=== PATIENT | female | born 1995 | race African-American/Black ===

== ENCOUNTER → 2017-01-11 | Outpatient (CLI) | payer MEDICAID ==
[2017-01-11 13:30] LABS: HEMATOCRIT 35.2 % (36.0-47.0); HEMOGLOBIN 11.4 g/dL (12.0-15.5); MEAN CORPUSCULAR HEMOGLOBIN 27.6 pg (27.0-33.4); MEAN CORPUSCULAR HGB CONC 32.4 g/dL (32.0-36.0); MEAN CORPUSCULAR VOLUME 85 fl (80-97); RED BLOOD COUNT 4.13 10^6/uL (3.72-5.28); RED CELL DISTRIBUTION WIDTH 14.4 % (11.5-14.0); WHITE BLOOD COUNT 10.8 10^3/uL (4.0-10.5)
[2017-01-11 13:54] LABS: ALANINE AMINOTRANSFERASE 18 U/L (9-52); ALBUMIN 4.1 g/dL (3.5-5.0); ALKALINE PHOSPHATASE 75 U/L (38-126); ANION GAP 11 (5-19); ASPARTATE AMINO TRANSFERASE 13 U/L (14-36); BILIRUBIN,DIRECT 0.2 mg/dL (0.0-0.4); BILIRUBIN,TOTAL 0.4 mg/dL (0.2-1.3); BLOOD UREA NITROGEN 11 mg/dL (7-20); C-REACTIVE PROTEIN 5.3 mg/L (<10.0); CALCIUM 9.3 mg/dL (8.4-10.2); CARBON DIOXIDE 26 mmol/L (22-30); CHLORIDE 104 mmol/L (98-107); CREATININE RESULT 0.59 mg/dL (0.52-1.25); GLUCOSE 84 mg/dL (75-110); POTASSIUM 4.2 mmol/L (3.6-5.0); SODIUM 140.7 mmol/L (137-145); TOTAL PROTEIN 7.1 g/dL (6.3-8.2)
== END ==
LOC: OD 12:23
PROVIDERS: ATTEND Physician Assistant Surgical
DX: R11.2 Nausea with vomiting, unspecified (principal); K62.89 Other specified diseases of anus and rectum; R10.12 Left upper quadrant pain
CPT/HCPCS: 36415; 80053; 85027; 86140

== ENCOUNTER 2017-12-12 11:23 | Emergency (ER) | payer MEDICAID, OTHER ==
[2017-12-12] MEDS ORDERED: ACETAMINOPHEN 325 MG TABLET PO ONE (11:53)
[2017-12-12] MEDS ORDERED: IPRATROPIUM/ALBUTEROL 0.5-2.5 MG/3 ML AMPUL NEB ONE (11:53)
[2017-12-12] MEDS ORDERED: ALPRAZOLAM 0.5 MG TABLET PO ONE (11:54)
--- NOTE | 2017-12-12 11:55 | ER Document Report ---
ED Medical Screen (RME) - General Chief Complaint: Chest Wall Pain Stated Complaint: CHEST PAIN Time Seen by Provider: 12/12/17 11:52 Notes: 22 years old female with a history of present today with sudden onset of general weakness to the point that she was unable to ambulate, shortness of breath wheezing coughing and also vomited couple of times. This happened at work. Just prior to arrival. I have greeted and performed a rapid initial assessment of this patient. A comprehensive ED assessment and evaluation of the patient, analysis of test results and completion of the medical decision making process will be conducted by additional ED providers. PHYSICAL EXAMINATION: GENERAL: Well-appearing, well-nourished and in no acute distress. Seems to be in acute anxiety. She was staring direct and speaking in a very low voice. HEAD: Atraumatic, normocephalic. EYES: Pupils equal round extraocular movements intact, conjunctiva are normal. ENT: Nares patent NECK: Normal range of motion LUNGS: No respiratory distress no rales or wheezing Musculoskeletal: Normal range of motion NEUROLOGICAL: Normal speech, normal gait. PSYCH: Normal mood, normal affect. SKIN: Warm, Dry, normal turgor, no rashes or lesions noted. TRAVEL OUTSIDE OF THE [place] IN LAST 30 DAYS: No - Related Data Allergies/Adverse Reactions: Iodinated Contrast- Oral and IV Dye Allergy (Intermediate, Verified 12/12/17 11: 38) Hives Shellfish * [Shellfish] Allergy (Intermediate, Verified 12/12/17 11:38) Hives Sulfa (Sulfonamide Antibiotics) Allergy (Intermediate, Verified 12/12/17 11:38) UNKNOWN indomethacin Allergy (Unknown, Verified 12/12/17 11:38) Unknown reaction Bees Allergy (Intermediate, Uncoded 12/12/17 11:38) Hives Past Medical History - Social History Chew tobacco use (# tins/day): No Drug Abuse: None - Past Medical History Cardiac Medical History: Denies: Hx Coronary Artery Disease, Hx Heart Attack, Hx Hypertension Pulmonary Medical History: Reports: Hx Asthma Denies: Hx Bronchitis, Hx COPD, Hx Pneumonia Neurological Medical History: Denies: Hx Cerebrovascular Accident, Hx Seizures Renal/ Medical History: Denies: Hx Peritoneal Dialysis GI Medical History: Reports: Hx Colonoscopy, Hx Endoscopy Musculoskeltal Medical History: Denies Hx Arthritis Past Surgical History: Reports: Hx Orthopedic Surgery - Immunizations Hx Diphtheria, Pertussis, Tetanus Vaccination: Yes Physical Exam - Vital signs Vitals: Temp Pulse Resp BP Pulse Ox 99.0 F 108 H 24 H 135/92 H 100 12/12/17 11:26 12/12/17 11:26 12/12/17 11:26 12/12/17 11:26 12/12/17 11:26 Course - Vital Signs Vital signs: Temp Pulse Resp BP Pulse Ox 99.0 F 108 H 24 H 135/92 H 100 12/12/17 11:26 12/12/17 11:26 12/12/17 11:26 12/12/17 11:26 12/12/17 11:26
[2017-12-12 12:24] LABS: ABSOLUTE BASOPHILS # (AUTO) 0.1 10^3/uL (0.0-0.2); ABSOLUTE EOSINOPHILS # (AUTO) 0.4 10^3/uL (0.0-0.6); ABSOLUTE LYMPHOCYTES (AUTO) 2.6 10^3/uL (0.5-4.7); ABSOLUTE MONOCYTES (AUTO) 0.7 10^3/uL (0.1-1.4); ABSOLUTE NEUT (AUTO) 7.1 10^3/uL (1.7-8.2); BASOPHILS % (AUTO) 0.6 % (0-2); EOSINOPHILS % (AUTO) 3.3 % (0-6); HEMATOCRIT 37.3 % (36.0-47.0); HEMOGLOBIN 12.1 g/dL (12.0-15.5); LYMPHOCYTES % (AUTO) 24.3 % (13-45); MEAN CORPUSCULAR HGB CONC 32.6 g/dL (32.0-36.0); MEAN CORPUSCULAR VOLUME 83 fl (80-97); MONOCYTES % (AUTO) 6.3 % (3-13); PLATELET COUNT 216 10^3/uL (150-450); RED CELL DISTRIBUTION WIDTH 14.5 % (11.5-14.0); SEGMENTED NEUTROPHILS % (AUTO) 65.5 % (42-78); TOTAL CELLS COUNTED % (AUTO) 100 %; WHITE BLOOD COUNT 10.9 10^3/uL (4.0-10.5)
--- NOTE | 2017-12-12 12:38 | ER Document Report ---
ED General - General Chief Complaint: Chest Wall Pain Stated Complaint: CHEST PAIN Time Seen by Provider: 12/12/17 11:52 Mode of Arrival: Ambulatory Information source: Patient, Parent, Relative TRAVEL OUTSIDE OF THE [place] IN LAST 30 DAYS: No - HPI Notes: 22-year-old female 2 para 0 who presents to the ER from urgent care for complaints of shortness of breath, chest pain, headache, sore throat, nausea and vomiting that started yesterday. Patient is tachycardic on arrival, with tachypnea. Patient is on oral control. Denies any recent immobilization , surgery, flights or car rides. Patient states she vomited 3 times today. States chest pain is worse with coughing, denies any radiation of chest pain, states pain is 4 out of 10, throbbing achy. Denies chest pain worse with activity. Has been coughing for the last few days. States her allergies has been bothering her. Last menstrual period was 3 weeks ago. Denies . has not tried any [id number] medications, did do a albuterol treatment this morning and she thought she was having an asthmatic flare. Denies fevers, chills, palpitations, nausea, vomiting, diarrhea, abdominal pain, hematuria, blurred vision, double vision, loss of vision, speech changes, LH, dizziness, syncope, headaches, wheezing, ST, URI, neck pain, weakness, bowel or bladder dysfunction, saddle anesthesia, numbness or tingling in bilateral upper or lower extremities equally, muscle paralysis, weakness in bilateral upper or lower extremities equally or rash. Denies IV drug use. - Related Data Allergies/Adverse Reactions: Iodinated Contrast- Oral and IV Dye Allergy (Intermediate, Verified 12/12/17 11: 38) Hives Shellfish * [Shellfish] Allergy (Intermediate, Verified 12/12/17 11:38) Hives Sulfa (Sulfonamide Antibiotics) Allergy (Intermediate, Verified 12/12/17 11:38) UNKNOWN indomethacin Allergy (Unknown, Verified 12/12/17 11:38) Unknown reaction Bees Allergy (Intermediate, Uncoded 12/12/17 11:38) Hives Past Medical History - General Information source: Patient - Social History Smoking Status: Never Smoker Chew tobacco use (# tins/day): No Drug Abuse: None Family History: Reviewed & Not Pertinent, Other Patient has suicidal ideation: No Patient has homicidal ideation: No - Past Medical History Cardiac Medical History: Denies: Hx Coronary Artery Disease, Hx Heart Attack, Hx Hypertension Pulmonary Medical History: Reports: Hx Asthma Denies: Hx Bronchitis, Hx COPD, Hx Pneumonia Neurological Medical History: Denies: Hx Cerebrovascular Accident, Hx Seizures Renal/ Medical History: Denies: Hx Peritoneal Dialysis GI Medical History: Reports: Hx Colonoscopy, Hx Endoscopy Musculoskeltal Medical History: Denies Hx Arthritis Past Surgical History: Reports: Hx Orthopedic Surgery - Immunizations Hx Diphtheria, Pertussis, Tetanus Vaccination: Yes Review of Systems - Review of Systems Constitutional: No symptoms reported EENT: See HPI Cardiovascular: See HPI Respiratory: See HPI Gastrointestinal: No symptoms reported Genitourinary: No symptoms reported Female Genitourinary: No symptoms reported Musculoskeletal: No symptoms reported Skin: No symptoms reported Hematologic/Lymphatic: No symptoms reported Neurological/Psychological: No symptoms reported Physical Exam - Vital signs Vitals: Temp Pulse Resp BP Pulse Ox 99.0 F 108 H 24 H 135/92 H 100 12/12/17 11:26 12/12/17 11:26 12/12/17 11:26 12/12/17 11:26 12/12/17 11:26 - Notes Notes: PHYSICAL EXAMINATION: GENERAL: Well-appearing, well-nourished and in no acute distress. HEAD: Atraumatic, normocephalic. EYES: Pupils equal round and reactive to light, extraocular movements intact, conjunctiva are normal. ENT: tympanic membranes are normal appearing with pearly color, normal- appearing landmarks and normal light reflex. Hearing is grossly intact. Has normal facial sensation to light touch in 3 branches of the trigeminal nerve. Normal facial movement. No clicking or popping when jaw opens or closes. The nasal mucosa is moist. The septum is midline. There is no evidence of septal hematoma. The turbinates are without abnormality.No obvious abnormalities to the lips. The teeth are unremarkable. No swelling. noted erythema and exudate on bilateral tonsils. no angioedema no drooling no trismus bilateral arches equal. Uvula midline. The salivary glands appear unremarkable. The tongue is midline. The posterior pharynx is without erythema or exudate. NECK: Normal range of motion, supple without lymphadenopathy LUNGS: Breath sounds clear to auscultation bilaterally and equal. No wheezes rales or rhonchi. Will to reproduce chest pain on palpation, patient states this chest pain prior to the emergency room. HEART: Sinus tachycardia. regular rhythm without murmurs ABDOMEN: Soft, nontender, nondistended abdomen. No guarding, no rebound. No masses appreciated. Female : deferred Musculoskeletal: Normal range of motion, no pitting or edema. No cyanosis. NEUROLOGICAL: Cranial nerves grossly intact. Normal speech, normal gait. Normal sensory, motor exams PSYCH: Normal mood, normal affect. SKIN: Warm, Dry, normal turgor, no rashes or lesions noted. Course - Re-evaluation Re-evalutation: Febrile, no distress tachycardic female. She premedicated with Benadryl and prednisolone which inadvertently can help treat her asthma. CTA negative for acute findings. Noted erythema and exudate on tonsils on clinical examination, patient's symptoms seem correlation with strep pharyngitis, such as her headache , sore throat, nausea and vomiting. Urine was negative. Patient also has seasonal allergies, I suspect that this did activate her asthma, which initially brought her in. CBC, CMP, urinalysis, cxr and urine tox screen unremarkable. 1 bag of normal saline given IV. In reevaluation, patient's heart rate reduced to 87 bpm. States her symptoms feel much better. I will treat this patient for strep pharyngitis with a course of amoxicillin and also give her Zofran in case she does not have any nausea. Denies to take over-the- counter ibuprofen and Tylenol as for costochondritis. Advised to splint while coughing and taking deep breaths. Advised to take at least 10 deep breaths per hour, cough at least trace to prevent any occurrence of atelectasis or pneumonia. I have reevaluated this patient multiple times and no significant life threatening changes, no signs of toxicity, sepsis or peritonitis are noted. The patient and I have discussed the diagnosis and risks, and we agree with discharging home and close follow-up. We also discussed returning to the Emergency Department immediately if new or worsening symptoms occur with the understanding that symptoms and presentations can change. At this time will discharge with return precautions and follow-up recommendations. Verbal discharge instructions given a the bedside and opportunity for questions given. We have discussed the symptoms which are most concerning (e.g., fever, shortness of breath, heart pain, worsening symptoms) that necessitate immediate return. Medication warnings reviewed. Patient is in agreement with this plan and has verbalized understanding of return precautions and the need for primary care follow-up in the next 24-72 hours. Patient verbalized understanding of plan of care and agree with plan of care. - Vital Signs Vital signs: Temp Pulse Resp BP Pulse Ox 98.0 F 108 H 21 H 116/65 99 12/12/17 16:15 12/12/17 11:26 12/12/17 16:06 12/12/17 16:06 12/12/17 16:06 - Laboratory Result Diagrams: 12/12/17 11:55 12/12/17 11:55 Laboratory results interpreted by me: 12/12/17 11:55 WBC 10.9 H RDW 14.5 H - EKG Interpretation by Me EKG shows normal: Sinus rhythm Rate: Normal Rhythm: NSR - 88 When compared to previous EKG there are: No significant change Discharge - Discharge Clinical Impression: Tonsillar exudate, Dehydration, Costochondritis, acute Condition: Stable Disposition: HOME, SELF-CARE Instructions: Anti-Inflammatory Medication ([facility]), Chest Wall Pain ([facility]), Dehydration ([facility]), Sore Throat ([facility]), Strep Throat ([facility]) Additional Instructions: Return immediately for any new or worsening symptoms.Please be sure to drink plenty of fluids while out in the heat. You can purchase packets of electrolyte replacement solutions such as Pedialyte or propel that you can add to plain water. This will help to make sure that you are getting adequate electrolytes in addition to fluids while working outside. Please return to the emergency department if you pass out, developed diffuse muscle cramping, have persistent vomiting, or have any other symptoms that are worrisome to you. Follow up with primary care provider, call tomorrow to make followup appointment. Prescriptions: Amoxicillin Trihydrate [Amoxil 500 mg Capsule] 500 mg PO TID #30 capsule Ondansetron [Zofran Odt 4 mg Tablet] 1 - 2 tab PO Q4H PRN #15 tab.rapdis PRN Reason: For Nausea/Vomiting Forms: Return to Work Referrals: ADELA MINA, [Primary Care Provider] - Follow up as needed
[2017-12-12 12:49] LABS: ALANINE AMINOTRANSFERASE 16 U/L (9-52); ALBUMIN 4.3 g/dL (3.5-5.0); ALKALINE PHOSPHATASE 81 U/L (38-126); ANION GAP 13 (5-19); ASPARTATE AMINO TRANSFERASE 14 U/L (14-36); BILIRUBIN,DIRECT 0.3 mg/dL (0.0-0.4); BILIRUBIN,TOTAL 0.3 mg/dL (0.2-1.3); BLOOD UREA NITROGEN 11 mg/dL (7-20); CALCIUM 9.3 mg/dL (8.4-10.2); CARBON DIOXIDE 25 mmol/L (22-30); CHLORIDE 105 mmol/L (98-107); GLUCOSE 87 mg/dL (75-110); POTASSIUM 3.6 mmol/L (3.6-5.0); SODIUM 143.3 mmol/L (137-145); TOTAL PROTEIN 7.5 g/dL (6.3-8.2)
[2017-12-12 12:52] LABS: APPEARANCE,URINE SLIGHTLY-CLOUDY; BILIRUBIN,URINE NEGATIVE (NEGATIVE); COLOR,URINE YELLOW; GLUCOSE, URINE NEGATIVE (NEGATIVE); KETONES,URINE NEGATIVE (NEGATIVE); LEUKOCYTE ESTERASE,URINE NEGATIVE (NEGATIVE); NITRITE,URINE NEGATIVE (NEGATIVE); PROTEIN,URINE NEGATIVE (NEGATIVE); URINE SPECIFIC GRAVITY 1.019; UROBILINOGEN,URINE NEGATIVE mg/dL (<2.0)
--- NOTE | 2017-12-12 13:01 | RADIOLOGY REPORT (SQ) ---
EXAM DESCRIPTION: CHEST 2 VIEWS COMPLETED DATE/TIME: 12/12/2017 12:52 pm REASON FOR STUDY: Chest pain COMPARISON: 07/08/2016. EXAM PARAMETERS: NUMBER OF VIEWS: two views TECHNIQUE: Digital Frontal and Lateral radiographic views of the chest acquired. RADIATION DOSE: NA LIMITATIONS: none FINDINGS: LUNGS AND PLEURA: No opacities, masses or pneumothorax. No pleural effusion. MEDIASTINUM AND HILAR STRUCTURES: No masses or contour abnormalities. HEART AND VASCULAR STRUCTURES: Heart normal size. No evidence for failure. BONES: No acute findings. HARDWARE: None in the chest. OTHER: No other significant finding. IMPRESSION: NO ACUTE RADIOGRAPHIC FINDING IN THE CHEST. TECHNICAL DOCUMENTATION: JOB ID: [id number] [employer]- All Rights Reserved Reading location - IP/workstation name: [email or web address]
[2017-12-12 13:05] LABS: URINE AMPHETAMINES SCREEN NEGATIVE; URINE BARBITURATES SCREEN NEGATIVE; URINE BENZODIAZEPINES SCREEN NEGATIVE; URINE COCAINE SCREEN NEGATIVE; URINE MARIJUANA (THC) SCREEN NEGATIVE; URINE METHADONE SCREEN NEGATIVE; URINE PHENCYCLIDINE SCREEN NEGATIVE
[2017-12-12] MEDS ORDERED: NORMAL SALINE 1000 ML 1,000 ML IV PRN (13:44)
[2017-12-12] MEDS ORDERED: DIPHENHYDRAMINE HCL 50 MG/ML VIAL IV ONE (13:44)
[2017-12-12] MEDS ORDERED: METHYLPREDNISOLONE INJ 125 MG/2 ML SDV IV ONE (13:44)
--- NOTE | 2017-12-12 15:16 | RADIOLOGY REPORT (SQ) ---
EXAM DESCRIPTION: CTA CHEST COMPLETED DATE/TIME: 12/12/2017 3:01 pm REASON FOR STUDY: tachy, on BC, intermittent SOB COMPARISON: None. TECHNIQUE: CT scan of the chest performed using helical scanning technique with dynamic intravenous contrast injection. Images reviewed with lung, soft tissue and bone windows. Reconstructed coronal and sagittal MPR images reviewed. Additional 3 dimensional post-processing performed to develop Maximal Intensity Projection images (CT P). All images stored on PACS. All CT scanners at this facility use dose modulation, iterative reconstruction, and/or weight based d osing when appropriate to reduce radiation dose to as low as reasonably achievable (ALARA). [facility]: Dose Right [facility]: CareDose [facility]: Dose Right [facility]: Teradose 4D [facility]: [employer] CONTRAST TYPE AND DOSE: contrast/concentration: Isovue 370.00 mg/ml; Total Contrast Delivered: 155.0 ml; Total Saline Delivered: 172.0 ml Contrast bolus optimized for the pulmonary arteries. Not diagnostic for the aorta. RENAL FUNCTION: BUN 11 creatinine 0.57 RADIATION DOSE: CT Rad equipment meets quality standard of care and radiation dose reduction techniq ues were employed. CTDIvol: 13.2 - 16.5 mGy. DLP: 1110 mGy-cm. . LIMITATIONS: None. FINDINGS: LUNGS AND PLEURA: No masses, infiltrates, pneumothorax. No pleural effusions, calcificati ons. AORTA AND GREAT VESSELS: No aneurysm. Contrast bolus not optimized for the aorta. HEART: No pericardial effusion. No significant coronary artery calcifications. PULMONARY ARTERIES: No emboli visualized in the main pulmonary arteries or the segmental branches. HILAR AND MEDIASTINAL STRUCTURES: No identified masses or abnormal nodes. HARDWARE: None in the chest. UPPER ABDOMEN: No significant findings. Limited exam. THYROID AND OTHER SOFT TISSUES: No masses. No adenopathy. BONES: No acute or significant finding. 3D MIPS: Confirm above findings. OTHER: No other significant finding. IMPRESSION: NORMAL CTA OF THE CHEST. NO PULMONARY EMBOLI. COMMENT: Quality ID # [id number]: Final reports with documentation of one or more dose reduction techniques (e.g., Automated exposure control, adjustment of the mA and/or kV according to patient size, use of iterative reconstruction technique) TECHNICAL DOCUMENTATION: JOB ID: [id number] [employer]- All Rights Reserved Reading location - IP/workstation name: [email or web address]
[2017-12-12] MEDS ORDERED: AMOXICILLIN TRIHYDRATE 500 MG CAPSULE PO ONE (16:06)
[2017-12-12 16:17] VITALS: BP 116/65
--- NOTE | 2017-12-12 23:33 | EKG REPORT ---
SEVERITY:- NORMAL ECG - SINUS RHYTHM : Confirmed by: Huang Franco 12-Dec-2017 23:32:36
== END 2017-12-12 16:44 | disposition home or self-care (01) ==
LOC: ER 11:23
DX: M94.0 Chondrocostal junction syndrome [Tietze] (principal); J45.909 Unspecified asthma, uncomplicated; R09.89 Other specified symptoms and signs involving the circulatory and respiratory systems; R51 Headache; E86.0 Dehydration; R06.02 Shortness of breath; J02.9 Acute pharyngitis, unspecified; R07.89 Other chest pain; R11.2 Nausea with vomiting, unspecified; R05 Cough; Z79.3 Long term (current) use of hormonal contraceptives; Z91.041 Radiographic dye allergy status; Z91.030 Bee allergy status; Z91.013 Allergy to seafood; Z88.2 Allergy status to sulfonamides; Z88.8 Allergy status to other drugs, medicaments and biological substances
CPT/HCPCS: 93005; 94640; 99285; 96361; 96374; 96375; 36415; 87070; 87880; 85025; 81025; 87077; 80053; 81001; 80307; 71046; 71275; 93010; J1200; J2930; J7030; J7620

== ENCOUNTER 2018-04-19 17:43 | Emergency (ER) | payer OTHER ==
--- NOTE | 2018-04-19 18:18 | ER Document Report ---
ED Medical Screen (RME) - General Chief Complaint: Abdominal Pain Stated Complaint: ABDOMINAL PAIN Time Seen by Provider: 04/19/18 18:11 Notes: 22-year-old female patient with right lower quadrant abdominal pain for the past week. She has had some chills with nausea and vomiting but without fever. She states the pain actually started last Monday, and it does radiate into her back quite a bit. LMP was 03/25/2018. She states her urine has not looked cloudy or had a bad odor. She does have a history of ovarian cysts but states this does not feel like her ovarian cyst in the past. I have greeted and performed a rapid initial assessment of this patient. A comprehensive ED assessment and evaluation of the patient, analysis of test results and completion of the medical decision making process will be conducted by additional ED providers. TRAVEL OUTSIDE OF THE [place] IN LAST 30 DAYS: No - Related Data Allergies/Adverse Reactions: Iodinated Contrast- Oral and IV Dye Allergy (Intermediate, Verified 04/19/18 17: 47) Hives Shellfish * [Shellfish] Allergy (Intermediate, Verified 04/19/18 17:47) Hives Sulfa (Sulfonamide Antibiotics) Allergy (Intermediate, Verified 04/19/18 17:47) UNKNOWN indomethacin Allergy (Unknown, Verified 04/19/18 17:47) Unknown reaction Bees Allergy (Intermediate, Uncoded 04/19/18 17:47) Hives Past Medical History - Social History Chew tobacco use (# tins/day): No Frequency of alcohol use: None Drug Abuse: None - Past Medical History Cardiac Medical History: Denies: Hx Coronary Artery Disease, Hx Heart Attack, Hx Hypertension Pulmonary Medical History: Reports: Hx Asthma Denies: Hx Bronchitis, Hx COPD, Hx Pneumonia Neurological Medical History: 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" Renal/ Medical History: Denies: Hx Peritoneal Dialysis GI Medical History: Reports: Hx Colonoscopy, Hx Endoscopy Musculoskeltal Medical History: Denies Hx Arthritis Past Surgical History: Reports: Hx Orthopedic Surgery - Immunizations Hx Diphtheria, Pertussis, Tetanus Vaccination: Yes Physical Exam - Vital signs Vitals: Temp Pulse Resp BP Pulse Ox 98.6 F 83 14 121/69 100 04/19/18 17:57 04/19/18 17:57 04/19/18 17:57 04/19/18 17:57 04/19/18 17:57 Course - Vital Signs Vital signs: Temp Pulse Resp BP Pulse Ox 98.6 F 83 14 121/69 100 04/19/18 17:57 04/19/18 17:57 04/19/18 17:57 04/19/18 17:57 04/19/18 17:57 Doctor's Discharge - Discharge Referrals: ADELA MINA, [Primary Care Provider] - Follow up as needed
[2018-04-19 18:56] LABS: APPEARANCE,URINE SLIGHTLY-CLOUDY; BILIRUBIN,URINE NEGATIVE (NEGATIVE); COLOR,URINE YELLOW; GLUCOSE, URINE NEGATIVE (NEGATIVE); KETONES,URINE NEGATIVE (NEGATIVE); LEUKOCYTE ESTERASE,URINE NEGATIVE (NEGATIVE); NITRITE,URINE NEGATIVE (NEGATIVE); PROTEIN,URINE NEGATIVE (NEGATIVE); URINE SPECIFIC GRAVITY 1.019; UROBILINOGEN,URINE NEGATIVE mg/dL (<2.0)
[2018-04-19 19:02] LABS: ABSOLUTE BASOPHILS # (AUTO) 0.1 10^3/uL (0.0-0.2); ABSOLUTE EOSINOPHILS # (AUTO) 0.3 10^3/uL (0.0-0.6); ABSOLUTE LYMPHOCYTES (AUTO) 2.9 10^3/uL (0.5-4.7); ABSOLUTE MONOCYTES (AUTO) 0.7 10^3/uL (0.1-1.4); ABSOLUTE NEUT (AUTO) 5.7 10^3/uL (1.7-8.2); BASOPHILS % (AUTO) 0.6 % (0-2); EOSINOPHILS % (AUTO) 2.7 % (0-6); HEMATOCRIT 35.6 % (36.0-47.0); HEMOGLOBIN 11.8 g/dL (12.0-15.5); LYMPHOCYTES % (AUTO) 30.1 % (13-45); MEAN CORPUSCULAR VOLUME 85 fl (80-97); PLATELET COUNT 207 10^3/uL (150-450); RED BLOOD COUNT 4.21 10^6/uL (3.72-5.28); RED CELL DISTRIBUTION WIDTH 14.5 % (11.5-14.0); SEGMENTED NEUTROPHILS % (AUTO) 59.6 % (42-78); TOTAL CELLS COUNTED % (AUTO) 100 %; WHITE BLOOD COUNT 9.6 10^3/uL (4.0-10.5)
[2018-04-19 19:18] LABS: ALANINE AMINOTRANSFERASE 16 U/L (9-52); ALKALINE PHOSPHATASE 52 U/L (38-126); ANION GAP 10 (5-19); ASPARTATE AMINO TRANSFERASE 14 U/L (14-36); BILIRUBIN,DIRECT 0.2 mg/dL (0.0-0.4); BILIRUBIN,TOTAL 0.3 mg/dL (0.2-1.3); BLOOD UREA NITROGEN 15 mg/dL (7-20); CALCIUM 9.8 mg/dL (8.4-10.2); CARBON DIOXIDE 25 mmol/L (22-30); CHLORIDE 106 mmol/L (98-107); GLUCOSE 91 mg/dL (75-110); POTASSIUM 4.4 mmol/L (3.6-5.0); SODIUM 141.2 mmol/L (137-145)
[2018-04-19] MEDS ORDERED: HYOSCYAMINE SULFATE 0.125 MG TABLET PO ONE (20:41)
[2018-04-19] MEDS ORDERED: LIDOCAINE 5% (700 MG) TRANSDERMAL ADH..PATCH TP ONE (20:41)
[2018-04-19] MEDS ORDERED: KETOROLAC TROMETHAMINE 60 MG/2 ML SDV IM ONE (20:41)
--- NOTE | 2018-04-19 20:53 | ER Document Report ---
ED General - General Chief Complaint: Abdominal Pain Stated Complaint: ABDOMINAL PAIN Time Seen by Provider: 04/19/18 18:11 Notes: Patient is a 22-year old female with a past medical history of endometriosis, cyclical abdominal pain who presents with 1 week of right lower abdominal pain. She states the pain started gradually, has been getting progressively worse since that time. She describes it as a stabbing, aching pain to the right adnexal region. Moving worsens the pain. She has not trying to improve the pain. She is unsure of whether or not she has had similar symptoms in the past. She has not seen her general doctor or TAIL WORKER regarding today's concerns. She denies any dysuria, vaginal bleeding, vaginal discharge, vomiting , diarrhea. No abdominal surgical history. No fever or constitutional symptoms. TRAVEL OUTSIDE OF THE [place] IN LAST 30 DAYS: No - Related Data Allergies/Adverse Reactions: Iodinated Contrast- Oral and IV Dye Allergy (Intermediate, Verified 04/19/18 17: 47) Hives Shellfish * [Shellfish] Allergy (Intermediate, Verified 04/19/18 17:47) Hives Sulfa (Sulfonamide Antibiotics) Allergy (Intermediate, Verified 04/19/18 17:47) UNKNOWN indomethacin Allergy (Unknown, Verified 04/19/18 17:47) Unknown reaction Bees Allergy (Intermediate, Uncoded 04/19/18 17:47) Hives Past Medical History - General Information source: Patient - Social History Smoking Status: Never Smoker Chew tobacco use (# tins/day): No Frequency of alcohol use: None Drug Abuse: None Lives with: Spouse/Significant other Family History: Reviewed & Not Pertinent, Other Patient has suicidal ideation: No Patient has homicidal ideation: No - Past Medical History Cardiac Medical History: Denies: Hx Coronary Artery Disease, Hx Heart Attack, Hx Hypertension Pulmonary Medical History: Reports: Hx Asthma Denies: Hx Bronchitis, Hx COPD, Hx Pneumonia Neurological Medical History: 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" Renal/ Medical History: Denies: Hx Peritoneal Dialysis GI Medical History: Reports: Hx Colonoscopy, Hx Endoscopy Musculoskeletal Medical History: Denies Hx Arthritis Past Surgical History: Reports: Hx Orthopedic Surgery - Immunizations Hx Diphtheria, Pertussis, Tetanus Vaccination: Yes Review of Systems - Review of Systems Notes: Constitutional: Negative for fever. HENT: Negative for sore throat. Eyes: Negative for visual changes. Cardiovascular: Negative for chest pain. Respiratory: Negative for shortness of breath. Gastrointestinal: Positive for abdominal pain Genitourinary: Negative for dysuria. Musculoskeletal: Negative for back pain. Skin: Negative for rash. Neurological: Negative for headaches, weakness or numbness. 10 point ROS negative except as marked above and in HPI. Physical Exam - Vital signs Vitals: Temp Pulse Resp BP Pulse Ox 98.6 F 83 14 121/69 100 04/19/18 17:57 04/19/18 17:57 04/19/18 17:57 04/19/18 17:57 04/19/18 17:57 Interpretation: Normal Notes: PHYSICAL EXAMINATION: GENERAL: Well-appearing, well-nourished and in no acute distress. HEAD: Atraumatic, normocephalic. EYES: Pupils equal round and reactive to light, extraocular movements intact, sclera anicteric, conjunctiva are normal. ENT: nares patent, oropharynx clear without exudates. Moist mucous membranes. NECK: Normal range of motion, supple without lymphadenopathy LUNGS: Breath sounds clear to auscultation bilaterally and equal. No wheezes rales or rhonchi. HEART: Regular rate and rhythm without murmurs ABDOMEN: Soft, mild right adnexal tenderness but no other areas of localized abdominal tenderness, normoactive bowel sounds. No guarding, no rebound. No masses appreciated. EXTREMITIES: Normal range of motion, no pitting or edema. No cyanosis. NEUROLOGICAL: No focal neurological deficits. Moves all extremities spontaneously and on command. PSYCH: Normal mood, normal affect. SKIN: Warm, Dry, normal turgor, no rashes or lesions noted. Course - Re-evaluation Re-evalutation: 04/19/18 20:51 Patient presents with 1 week of right lower abdominal pain, most focal over the right adnexa on exam. History and duration of symptoms are inconsistent with a TOA or an ovarian torsion, most probably a ovarian cyst. No vaginal discharge, vaginal bleeding, constitutional symptoms to suggest an infectious etiology such as PID. Patient is a long-standing history of chronic intermittent abdominal pain, has had extensive evaluations for this including multiple CT scans, HIDA scan, abdominal ultrasound, endoscopy and colonoscopy all without distinct etiology. I have examined the patient that she likely has cyclical abdominal pain but will proceed with a transvaginal ultrasound to evaluate for the possibility of an ovarian cyst which could be an alternative etiology of her symptoms today. I do not suspect an acute appendicitis or any alternative intra-abdominal pathology at this point based on her vitals, labs, exam and history. 04/20/18 00:49 Right ovarian cyst confirmed on ultrasound. Repeat abdominal exam benign. I have discussed results with the patient as well as need for outpatient OB follow -up. At this time will discharge with return precautions and follow-up recommendations. Verbal discharge instructions given a the bedside and opportunity for questions given. Medication warnings reviewed. Patient is in agreement with this plan and has verbalized understanding of return precautions and the need for primary care follow-up in the next 24-72 hours. - Vital Signs Vital signs: Temp Pulse Resp BP Pulse Ox 98.6 F 83 14 121/69 100 04/19/18 17:57 04/19/18 17:57 04/19/18 17:57 04/19/18 17:57 04/19/18 17:57 - Laboratory Result Diagrams: 04/19/18 18:45 04/19/18 18:45 Laboratory results interpreted by me: 04/19/18 18:45 Hgb 11.8 L Hct 35.6 L RDW 14.5 H Discharge - Discharge Clinical Impression: Right ovarian cyst, Cyclical abdominal pain Condition: Good Disposition: HOME, SELF-CARE Additional Instructions: Your seen today for right lower abdominal pain. Your ultrasound does show a 6 cm cyst in your right ovary. For your pain: Take ibuprofen 600 mg and acetaminophen 1000 mg every 6 hours together as needed for pain. Please follow- up with your TAIL WORKER within the next 24-40 hours regarding today's visit to the emergency department. Return if you develop fever, worsening pain, persistent vomiting, or any other symptoms that are worrisome to you. Referrals: ADELA MINA, [NO LOCAL MD] - Follow up as needed
--- NOTE | 2018-04-20 00:28 | RADIOLOGY REPORT (SQ) ---
EXAM DESCRIPTION: US TRANSVAGINAL COMPLETED DATE/TME: 04/19/2018 20:40 CLINICAL HISTORY: right adnexal pain COMPARISON: None. FINDINGS: Transvaginal images of the pelvis were submitted. The uterus is of homogeneous echotexture without focal mass. The uterus measures 8 x 5 x 4.1 cm. The endometrial complex measures 6 mm which is within normal limits. Right ovary measured 5.9 x 5.7 x 4.2 cm and contains a 5.5 x 4.7 x 3.5 cm cyst with septation. There is no sonographic evidence of ovarian torsion. The left ovary was not visualized. IMPRESSION: Septated 5.5 cm cyst within the right ovary. Follow-up ultrasound in 6-12 weeks recommended for further evaluation unless clinically indicated sooner.
[2018-04-20 01:11] VITALS: BP 126/79
== END 2018-04-20 01:13 | disposition home or self-care (01) ==
LOC: ER 17:43
DX: N83.201 Unspecified ovarian cyst, right side (principal); R10.9 Unspecified abdominal pain; Z88.2 Allergy status to sulfonamides; Z91.013 Allergy to seafood
CPT/HCPCS: 99284; 96372; 36415; 85025; 81025; 80053; 81001; 76830; 93976; J1885; J3490

== ENCOUNTER 2018-12-28 13:14 | Emergency (ER) | payer OTHER ==
[2018-12-28] MEDS ORDERED: ALBUTEROL SULFATE 0.083% NEB 2.5 MG/3 ML AMPUL NEB ONE ×2 (14:13→17:37)
[2018-12-28] MEDS ORDERED: HYDROCODONE BIT/HOMATROPINE SYRUP 5 ML UDCUP PO ONE (14:15)
[2018-12-28] MEDS ORDERED: GUAIFENESIN SYRP 200 MG/10 ML UDC PO ONE (14:20)
--- NOTE | 2018-12-28 14:20 | ER Document Report ---
ED Medical Screen (RME) - General Chief Complaint: Shortness Of Breath Stated Complaint: DIFFICULTY BREATHING Time Seen by Provider: 12/28/18 14:07 Primary Care Provider: DRAKE MUHAMMAD MD [Primary Care Provider] - Follow up as needed Mode of Arrival: Ambulatory Information source: Patient Notes: Pt is an asthmatic and has had productive cough for 1 week. Patient states it is productive of thick green sputum and has been causing her to gag. She was short of breath today and called 911, they gave her breathing treatments which has helped. She admits to feeling clammy and chills but does not know if she had a fever. TRAVEL OUTSIDE OF THE [place] IN LAST 30 DAYS: No - Related Data Allergies/Adverse Reactions: Iodinated Contrast- Oral and IV Dye Allergy (Intermediate, Verified 04/19/18 17:47) Hives Shellfish * [Shellfish] Allergy (Intermediate, Verified 04/19/18 17:47) Hives Sulfa (Sulfonamide Antibiotics) Allergy (Intermediate, Verified 04/19/18 17:47) UNKNOWN indomethacin Allergy (Unknown, Verified 04/19/18 17:47) Unknown reaction Bees Allergy (Intermediate, Uncoded 04/19/18 17:47) Hives Past Medical History - General Information source: Patient - Social History Chew tobacco use (# tins/day): No Frequency of alcohol use: None Drug Abuse: None - Past Medical History Cardiac Medical History: Denies: Hx Coronary Artery Disease, Hx Heart Attack, Hx Hypertension Pulmonary Medical History: Reports: Hx Asthma Denies: Hx Bronchitis, Hx COPD, Hx Pneumonia Neurological Medical History: 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" Renal/ Medical History: Denies: Hx Peritoneal Dialysis GI Medical History: Reports: Hx Colonoscopy, Hx Endoscopy Musculoskeltal Medical History: Denies Hx Arthritis Past Surgical History: Reports: Hx Orthopedic Surgery - Immunizations Hx Diphtheria, Pertussis, Tetanus Vaccination: Yes Review of Systems - Review of Systems Respiratory: See HPI Physical Exam - Vital signs Vitals: Temp Pulse Resp BP Pulse Ox 99.4 F 83 22 H 150/64 H 100 12/28/18 13:25 12/28/18 13:25 12/28/18 13:25 12/28/18 13:25 12/28/18 13:25 - Notes Notes: PHYSICAL EXAMINATION: GENERAL: no acute distress. HEAD: Atraumatic, normocephalic. NECK: Normal range of motion, supple without lymphadenopathy LUNGS: Coughing, otherwise no wheezing, no respiratory distress HEART: Regular rate and rhythm without murmurs Course - Vital Signs Vital signs: Temp Pulse Resp BP Pulse Ox 99.4 F 83 22 H 150/64 H 100 12/28/18 13:25 12/28/18 13:25 12/28/18 13:25 12/28/18 13:25 12/28/18 13:25 Doctor's Discharge - Discharge Referrals: DRAKE MUHAMMAD MD [Primary Care Provider] - Follow up as needed
--- NOTE | 2018-12-28 14:59 | RADIOLOGY REPORT (SQ) ---
EXAM DESCRIPTION: CHEST 2 VIEWS COMPLETED DATE/TIME: 12/28/2018 2:49 pm REASON FOR STUDY: asthma exacerbation COMPARISON: 12/12/2017 EXAM PARAMETERS: NUMBER OF VIEWS: two views TECHNIQUE: Digital Frontal and Lateral radiographic views of the chest acquired. RADIATION DOSE: NA LIMITATIONS: none FINDINGS: LUNGS AND PLEURA: No opacities, masses or pneumothorax. No pleural effusion. MEDIASTINUM AND HILAR STRUCTURES: No masses or contour abnormalities. HEART AND VASCULAR STRUCTURES: Heart normal size. No evidence for failure. BONES: No acute findings. HARDWARE: None in the chest. OTHER: No other significant finding. IMPRESSION: NO ACUTE RADIOGRAPHIC FINDING IN THE CHEST. TECHNICAL DOCUMENTATION: JOB ID: [id number] [employer]- All Rights Reserved Reading location - IP/workstation name: [email or web address]
[2018-12-28] MEDS ORDERED: DEXAMETHASONE SOD PHOS INJ 10 MG/1 ML VIAL IV ONE (17:37)
--- NOTE | 2018-12-28 17:45 | ER Document Report ---
ED Respiratory Problem - General Chief Complaint: Shortness Of Breath Stated Complaint: DIFFICULTY BREATHING Time Seen by Provider: 12/28/18 14:07 Primary Care Provider: ADELA MINA DO [NO LOCAL MD] - 12/31/18 Mode of Arrival: Ambulatory Notes: 23-year-old female presented to ED for complaint of productive cough times a week. She denies any fevers. She states she is coughing up thick green sputum but has not had any fever. She states she is not having any runny nose or congestion does have a sore throat. She states sometimes that her ribs hurt from coughing.. She states she does have a history of asthma and has an inhaler at home. Patient is alert oriented respirations regular and unlabored speaking in full sentences walks with even steady gait. Her lungs are clear to auscultation. She has already had a chest x-ray which is negative. TRAVEL OUTSIDE OF THE [place] IN LAST 30 DAYS: No - HPI Patient complains to provider of: Asthma, Cough, Short of breath Onset: Last week Duration: Continuous Initiating Event: URI - And sore throat Quality of pain: Sharp Severity: Moderate Pain Level: 2 Context: Hx asthma Short of Breath: Mild Cough: Productive Sputum amount: Small Sputum color: Green Sputum consistency: Thick At home treatment: Bronchodilators Associated symptoms: Chest pain/discomfort, Congestion, Cough, Sore Throat Similar symptoms previously: Yes Recently seen / treated by doctor: No - Related Data Allergies/Adverse Reactions: Iodinated Contrast- Oral and IV Dye Allergy (Intermediate, Verified 04/19/18 17:47) Hives Shellfish * [Shellfish] Allergy (Intermediate, Verified 04/19/18 17:47) Hives Sulfa (Sulfonamide Antibiotics) Allergy (Intermediate, Verified 04/19/18 17:47) UNKNOWN indomethacin Allergy (Unknown, Verified 04/19/18 17:47) Unknown reaction Bees Allergy (Intermediate, Uncoded 04/19/18 17:47) Hives Past Medical History - General Information source: Patient - Social History Smoking Status: Never Smoker Chew tobacco use (# tins/day): No Frequency of alcohol use: None Drug Abuse: None Family History: Reviewed & Not Pertinent, Other Patient has suicidal ideation: No Patient has homicidal ideation: No - Past Medical History Cardiac Medical History: Reports: None Pulmonary Medical History: Reports: Hx Asthma EENT Medical History: Reports: None Neurological Medical History: Reports: None Endocrine Medical History: Reports: None Renal/ Medical History: Reports: None Malignancy Medical History: Reports: None GI Medical History: Reports: Hx Colonoscopy, Hx Endoscopy Musculoskeletal Medical History: Reports Hx Musculoskeletal Trauma Skin Medical History: Reports None Psychiatric Medical History: Reports: None Traumatic Medical History: Reports: None Infectious Medical History: Reports: None Past Surgical History: Reports: Hx Orthopedic Surgery - Right ACL tear repair Review of Systems - Review of Systems Constitutional: Chills, Recent illness EENT: Throat pain Cardiovascular: No symptoms reported Respiratory: Cough, Short of breath, Sputum. denies: Wheezing Gastrointestinal: No symptoms reported Genitourinary: No symptoms reported Female Genitourinary: No symptoms reported Musculoskeletal: No symptoms reported Skin: No symptoms reported Hematologic/Lymphatic: No symptoms reported Neurological/Psychological: No symptoms reported -: Yes All other systems reviewed and negative Physical Exam - Vital signs Vitals: Temp Pulse Resp BP Pulse Ox 99.4 F 83 22 H 150/64 H 100 12/28/18 13:25 12/28/18 13:25 12/28/18 13:25 12/28/18 13:25 12/28/18 13:25 Interpretation: Normal - General General appearance: Appears well, Alert - HEENT Head: Normocephalic, Atraumatic Eyes: Normal Pupils: PERRL - Respiratory Respiratory status: No respiratory distress. No: Respiratory distress, Agonal respirations, Cyanosis, Depressed respirations, Pursed lip breathing, Tripod position Chest status: Nontender, Pain with cough. No: Pain on movement, Pain with deep breathing Breath sounds: Normal, Productive cough - Patient complains of productive cough but I did not see any productive cough. No: Decreased air movement, Rales, Rhonchi, Stridor, Wheezing Chest palpation: Normal - Cardiovascular Rhythm: Regular Heart sounds: Normal auscultation Murmur: No - Abdominal Inspection: Normal Distension: No distension Bowel sounds: Normal Tenderness: Nontender Organomegaly: No organomegaly - Back Back: Normal, Nontender - Extremities General upper extremity: Normal inspection, Nontender, Normal color, Normal ROM, Normal temperature General lower extremity: Normal inspection, Nontender, Normal color, Normal ROM, Normal temperature, Normal weight bearing. No: Ferny's sign - Neurological Neuro grossly intact: Yes Cognition: Normal Orientation: AAOx4 Ciarra Coma Scale Eye Opening: Spontaneous Ciarra Coma Scale Verbal: Oriented Ciarra Coma Scale Motor: Obeys Commands Ciarra Coma Scale Total: 15 Speech: Normal Motor strength normal: LUE, RUE, LLE, RLE Sensory: Normal - Psychological Associated symptoms: Normal affect, Normal mood - Skin Skin Temperature: Warm Skin Moisture: Dry Skin Color: Normal Course - Re-evaluation Re-evalutation: 12/28/18 18:56 Lab and x-ray results discussed with patient and written report of labs and x- rays given to patient for follow-up with primary care doctor. Patient was treated with steroids breathing treatments and cough medicine in the emergency room and discharged home with prescription for Tessalon Perles. Patient was instructed to follow-up with the primary care doctor on Monday. Patient was able to verbalize understanding and agreement with treatment plan. Patient vital signs are stable lung is clear to auscultation with no wheezing. Patient is feeling much better and will be discharged home. - Vital Signs Vital signs: Temp Pulse Resp BP Pulse Ox 98.7 F 72 16 129/60 H 99 12/28/18 18:54 12/28/18 18:54 12/28/18 18:54 12/28/18 18:54 12/28/18 18:54 - Laboratory Laboratory results interpreted by me: 12/28/18 17:40 Urine Protein 30 H Urine Blood LARGE H - Diagnostic Test Radiology reviewed: Image reviewed, Reports reviewed Discharge - Discharge Clinical Impression: Asthma exacerbation Qualifiers: Asthma severity: unspecified severity Asthma persistence: unspecified Qualified Code(s): J45.901 - Unspecified asthma with (acute) exacerbation Condition: Stable Disposition: HOME, SELF-CARE Additional Instructions: ASTHMA: You have been diagnosed as having asthma. This is a condition where there is episodic tightness in the bronchial tubes. Allergies, infections, and polluted or cold air may be contributing factors. Emergency treatment of a severe asthma attack may include adrenaline shots, or bronchodilator aerosol. You may feel lightheaded, have a decreased exercise tolerance and a rapid pulse for an hour or two. Rest and get plenty of fluids. Home treatment of asthma requires bronchodilator drugs. These can be administered by injection, inhalation, or by mouth. Antibiotics and corticosteroids may be required for some patients. You should avoid chemical fumes, dusts, pollens, and exercising in very cold or dry air. If you smoke, stop!! If you develop a fever, increased wheezing, chest pain, or severe shortness of breath, you should contact the doctor immediately. STEROID MEDICATION: You have been given an injection of or oral medicine of the cortisone/steroid class. This medication is used to control inflammation or allergy. Joey t is usually only given for a short period of time, until the acute process subsides. There are usually no side effects from short-term use of cortisone-like medications. Some persons feel an increased sense of well-being and are not sleepy at bedtime. Long-term use of cortisone medications is best avoided, unless required for a severe condition. If your condition does not remit, or relapses after the course of corticosteroid medication, you should consult your physician. INHALED BRONCHODILATORS: You have received treatment(s) of and/or prescription for an inhaled bronchodilator -- a medication which stimulates the airways in the lung to dilate. This improves the flow of air in asthma, bronchitis, and emphysema. These medicines have some similarity to adrenaline, and can cause similar side effects: shakiness, racing heart, and a sense of nervousness. These side effects decrease with time. Contact your doctor if these side effects are severe. Do not over-use the medicine. Too-frequent use of the inhaler may make it ineffective. Call your doctor if the inhaler is not controlling your symptoms at the prescribed doses. USE OF ACETAMINOPHEN (Tylenol): Acetaminophen may be taken for pain relief or fever control. It's much safer than aspirin, offering a wider range of "safe" dosages. It is safe during . Some brand names are Tylenol, Panadol, Datril, Anacin 3, Tempra, and Liquiprin. Acetaminophen can be repeated every four hours. The following are maximum recommended dosages: WEIGHT Dose Drops Elixir Chewable(80mg) (LBS.) drprs=droppers tsp=teaspoon 6 40 mg 0.4 ml (1/2) 6-11 80 mg 0.8 ml (full) tsp 1 tab 12-16 120 mg 1 1/2 drprs 3/4 tsp 1 1/2 tabs 17-23 160 mg 2 drprs 1 tsp 2 tabs 24-30 240 mg 3 drprs 1 1/2 tsp 3 tabs 30-35 320 mg 2 tsp 4 tabs 36-41 360 mg 2 1/4 tsp 4 1/2 tabs 42-47 400 mg 2 1/2 tsp 5 tabs 48-53 480 mg 3 tsp 6 tabs 54-59 520 mg 3 1/4 tsp 6 1/2 tabs 60-64 560 mg 3 1/2 tsp 7 tabs 65-70 600 mg 3 3/4 tsp 7 1/2 tabs 71-76 640 mg 4 tsp 8 tabs 77-82 720 mg 4 1/2 tsp 9 tabs 83-88 800 mg 5 tsp 10 tabs >89 pounds or adults 650 mg to 900 mg Acetaminophen can be repeated every four hours. Maximum dose not to exceed 4000 mg a day. These maximum recommended dosages are slightly higher than the dosages written on the product container, but these dosages are very safe and below the toxic dosage for acetaminophen. FOLLOW-UP CARE: If you have been referred to a physician for follow-up care, call the physicians office for an appointment as you were instructed or within the next two days. If you experience worsening or a significant change in your symptoms, notify the physician immediately or return to the Emergency Department at any time for re-evaluation. Prescriptions: Benzonatate [Tessalon Perle 100 mg Capsule] 100 mg PO Q8HP PRN #20 cap PRN Reason: Forms: Elevated Blood Pressure, Return to Work Referrals: ADELA MINA DO [NO LOCAL MD] - 12/31/18
[2018-12-28 18:04] LABS: AMORPHOUS SEDIMENT,URINE TRACE /HPF; APPEARANCE,URINE TURBID; BILIRUBIN,URINE NEGATIVE (NEGATIVE); COLOR,URINE AMBER; GLUCOSE, URINE NEGATIVE (NEGATIVE); KETONES,URINE NEGATIVE (NEGATIVE); LEUKOCYTE ESTERASE,URINE NEGATIVE (NEGATIVE); NITRITE,URINE NEGATIVE (NEGATIVE); PROTEIN,URINE 30 mg/dL (NEGATIVE); URINE SPECIFIC GRAVITY 1.024; UROBILINOGEN,URINE NEGATIVE mg/dL (<2.0)
[2018-12-28 18:55] VITALS: BP 129/60
== END 2018-12-28 18:57 | disposition home or self-care (01) ==
LOC: ER 13:14
DX: J45.901 Unspecified asthma with (acute) exacerbation (principal); Z79.899 Other long term (current) drug therapy; R05 Cough; J02.9 Acute pharyngitis, unspecified; R07.81 Pleurodynia; R06.02 Shortness of breath; R68.83 Chills (without fever); Z91.041 Radiographic dye allergy status; Z91.013 Allergy to seafood; Z88.2 Allergy status to sulfonamides; Z91.030 Bee allergy status; Z88.8 Allergy status to other drugs, medicaments and biological substances
CPT/HCPCS: 94640 ×2; 99285; 96374; 87070; 87086; 87880; 82962; 81025; 81001; 71046; J1100

== ENCOUNTER 2019-06-11 12:13 | Emergency (ER) | payer OTHER ==
[2019-06-11] MEDS ORDERED: ONDANSETRON 4 MG TAB.RAPDIS PO ONE (12:52)
--- NOTE | 2019-06-11 12:52 | ER Document Report ---
ED Medical Screen (RME) - General Chief Complaint: Abdominal Pain Stated Complaint: ABDOMINAL PAIN/BACK PAIN/VOMITING Time Seen by Provider: 06/11/19 12:46 Primary Care Provider: DRAKE MUHAMMAD MD [Primary Care Provider] - Follow up as needed Mode of Arrival: Ambulatory Information source: Patient Notes: 23-year-old female presented to ED for complaint of right upper quadrant and pelvic pain. She states it started about a week ago. She states she just had a. Last week and after the bleeding stopped she still having the pain. Denies any burning frequency or urgency with urination. She states her pain is a level 3 achy with sharp since 3 AM. Dates she might have a diagnosis with endometriosis but is not definite. Does have a diagnosis of IBS gluten activity and a history of ovarian cyst. She states she has not been able to keep anything down yesterday and today. She has no appetite and she is vomiting when she tries to eat. She does have active bowel sounds with severe tenderness to the right upper quadrant I have greeted and performed a rapid initial assessment of this patient. A comprehensive ED assessment and evaluation of the patient, analysis of test results and completion of medical decision making process will be conducted by an additional ED providers. TRAVEL OUTSIDE OF THE [place] IN LAST 30 DAYS: No - Related Data Allergies/Adverse Reactions: Iodinated Contrast Media Allergy (Intermediate, Verified 04/19/18 17:47) Hives Shellfish * [Shellfish] Allergy (Intermediate, Verified 04/19/18 17:47) Hives Sulfa (Sulfonamide Antibiotics) Allergy (Intermediate, Verified 04/19/18 17:47) UNKNOWN indomethacin Allergy (Unknown, Verified 04/19/18 17:47) Unknown reaction Bees Allergy (Intermediate, Uncoded 04/19/18 17:47) Hives Past Medical History - Past Medical History Cardiac Medical History: Denies: Hx Coronary Artery Disease, Hx Heart Attack, Hx Hypertension Pulmonary Medical History: Reports: Hx Asthma Denies: Hx Bronchitis, Hx COPD, Hx Pneumonia Neurological Medical History: 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" Renal/ Medical History: Denies: Hx Peritoneal Dialysis GI Medical History: Reports: Hx Colonoscopy, Hx Endoscopy Musculoskeltal Medical History: Denies Hx Arthritis, Reports Hx Musculoskeletal Trauma Past Surgical History: Reports: Hx Orthopedic Surgery - Right ACL tear repair - Immunizations Hx Diphtheria, Pertussis, Tetanus Vaccination: Yes Physical Exam - Vital signs Vitals: Temp Pulse Resp BP Pulse Ox 98.3 F 82 18 146/70 H 99 06/11/19 12:31 06/11/19 12:31 06/11/19 12:31 06/11/19 12:31 06/11/19 12:31 Course - Vital Signs Vital signs: Temp Pulse Resp BP Pulse Ox 98.3 F 82 18 146/70 H 99 06/11/19 12:31 06/11/19 12:31 06/11/19 12:31 06/11/19 12:31 06/11/19 12:31 Doctor's Discharge - Discharge Referrals: DRAKE MUHAMMAD MD [Primary Care Provider] - Follow up as needed
[2019-06-11 13:33] LABS: ABSOLUTE BASOPHILS # (AUTO) 0.1 10^3/uL (0.0-0.2); ABSOLUTE EOSINOPHILS # (AUTO) 0.3 10^3/uL (0.0-0.6); ABSOLUTE LYMPHOCYTES (AUTO) 2.6 10^3/uL (0.5-4.7); ABSOLUTE MONOCYTES (AUTO) 0.5 10^3/uL (0.1-1.4); ABSOLUTE NEUT (AUTO) 4.8 10^3/uL (1.7-8.2); BASOPHILS % (AUTO) 0.7 % (0-2); EOSINOPHILS % (AUTO) 3.5 % (0-6); HEMATOCRIT 39.7 % (36.0-47.0); HEMOGLOBIN 12.9 g/dL (12.0-15.5); LYMPHOCYTES % (AUTO) 31.7 % (13-45); MEAN CORPUSCULAR HEMOGLOBIN 28.1 pg (27.0-33.4); MEAN CORPUSCULAR HGB CONC 32.4 g/dL (32.0-36.0); MEAN CORPUSCULAR VOLUME 87 fl (80-97); MONOCYTES % (AUTO) 6.2 % (3-13); PLATELET COUNT 229 10^3/uL (150-450); RED BLOOD COUNT 4.58 10^6/uL (3.72-5.28); RED CELL DISTRIBUTION WIDTH 14.4 % (11.5-14.0); SEGMENTED NEUTROPHILS % (AUTO) 57.9 % (42-78); TOTAL CELLS COUNTED % (AUTO) 100 %; WHITE BLOOD COUNT 8.3 10^3/uL (4.0-10.5)
[2019-06-11 14:01] LABS: APPEARANCE,URINE SLIGHTLY-CLOUDY; BILIRUBIN,URINE NEGATIVE (NEGATIVE); COLOR,URINE YELLOW; GLUCOSE, URINE NEGATIVE (NEGATIVE); KETONES,URINE TRACE mg/dL (NEGATIVE); PROTEIN,URINE NEGATIVE (NEGATIVE); URINE SPECIFIC GRAVITY 1.028; UROBILINOGEN,URINE NEGATIVE mg/dL (<2.0)
[2019-06-11 14:06] LABS: ALBUMIN 4.7 g/dL (3.5-5.0); ALKALINE PHOSPHATASE 66 U/L (38-126); ANION GAP 10 (5-19); ASPARTATE AMINO TRANSFERASE 16 U/L (14-36); BILIRUBIN,TOTAL 0.6 mg/dL (0.2-1.3); BLOOD UREA NITROGEN 10 mg/dL (7-20); CALCIUM 9.5 mg/dL (8.4-10.2); CARBON DIOXIDE 27 mmol/L (22-30); CHLORIDE 104 mmol/L (98-107); GLUCOSE 83 mg/dL (75-110); POTASSIUM 4.1 mmol/L (3.6-5.0); TOTAL PROTEIN 7.7 g/dL (6.3-8.2)
--- NOTE | 2019-06-11 14:28 | RADIOLOGY REPORT (SQ) ---
EXAM DESCRIPTION: U/S ABDOMEN LIMITED W/O DOP COMPLETED DATE/TIME: 06/11/2019 2:09 pm REASON FOR STUDY: Right upper quadrant and pelvic pain COMPARISON: None. TECHNIQUE: Dynamic and static grayscale images acquired of the abdomen and recorded on PACS. Additio nal selected color Doppler and spectral images recorded. LIMITATIONS: Limited visualization of some structures. FINDINGS: PANCREAS: Limited visualization. LIVER: No masses. Echotexture normal. LIVER VASCULATURE: Normal directional flow of the main portal vein and hepatic veins. GALLBLADDER: No stones. Normal wall thickness. No pericholecystic fluid. ULTRASOUND-DETECTED TODD'S SIGN: Negative. INTRAHEPATIC DUCTS AND COMMON DUCT: CBD and intrahepatic ducts normal caliber. No filling defects. INFERIOR VENA CAVA: Normal flow. AORTA: No aneurysm. RIGHT KIDNEY: Normal size measuring 9.5 cm. Normal echogenicity. No solid or suspicious masses. No h ydronephrosis. No calcifications. PERITONEAL AND RIGHT PLEURAL SPACE: No ascites or effusions. OTHER: No other significant findings. IMPRESSION: Unremarkable right upper quadrant ultrasound TECHNICAL DOCUMENTATION: JOB ID: [id number]- All Rights Reserved Reading location - IP/workstation name: [email or web address]
--- NOTE | 2019-06-11 14:31 | RADIOLOGY REPORT (SQ) ---
EXAM DESCRIPTION: U/S NON-OB PELVIS TV W/O DOP COMPLETED DATE/TIME: 06/11/2019 2:09 pm REASON FOR STUDY: Right upper quadrant and pelvic pain COMPARISON: 04/19/2018 TECHNIQUE: Dynamic and static grayscale images acquired of the pelvis via transvaginal approach and recorded on PACS. Additional selected color Doppler and spectral images recorded. LIMITATIONS: None. FINDINGS: UTERUS: Unremarkable in size measuring 8.7 x 4.7 x 4.2 cm. section scar noted. ENDOMETRIAL STRIPE: Endometrial stripe is normal in thickness measuring 7 mm. No focal thickening. CERVIX: 1.9 cm RIGHT OVARY AND DOPPLER: Normal size measuring 2.3 x 2.2 x 3.6 cm. Previously-seen 5.5 cm cyst is no longer appreciated. Multiple follicles noted. No worrisome masses. Normal arterial vascular flow w ithout evidence for torsion. LEFT OVARY AND DOPPLER: Normal size measuring 1.9 x 1.7 x 2.6 cm. No worrisome masses. Normal arteria l vascular flow without evidence for torsion. FREE FLUID: None noted. OTHER: No other significant finding. IMPRESSION: Unremarkable pelvic ultrasound. Previously-seen 5.5 cm right ovarian cyst is no longer appreciated. TECHNICAL DOCUMENTATION: JOB ID: [id number] [employer]- All Rights Reserved Rev-12/01 Reading location - IP/workstation name: [email or web address]
--- NOTE | 2019-06-11 15:00 | ER Document Report ---
ED GI/ - General Chief Complaint: Flank Pain Stated Complaint: ABDOMINAL PAIN/BACK PAIN/VOMITING Time Seen by Provider: 06/11/19 12:46 Primary Care Provider: DRAKE MUHAMMAD MD [ACTIVE STAFF] - Follow up as needed Mode of Arrival: Ambulatory Notes: 23-year-old female presented to ED for complaint of right upper quadrant and pelvic pain. She states it started about a week ago. She states she just had a. Last week and after the bleeding stopped she still having the pain. Denies any burning frequency or urgency with urination. She states her pain is a level 3 achy with sharp since 3 AM. Dates she might have a diagnosis with endometriosis but is not definite. Does have a diagnosis of IBS gluten activity and a history of ovarian cyst. She states she has not been able to keep anything down yesterday and today. She has no appetite and she is vomiting when she tries to eat. She does have active bowel sounds with severe tenderness to the right upper quadrant TRAVEL OUTSIDE OF THE [place] IN LAST 30 DAYS: No - Related Data Allergies/Adverse Reactions: Iodinated Contrast Media Allergy (Intermediate, Verified 06/11/19 12:47) Hives Shellfish * [Shellfish] Allergy (Intermediate, Verified 06/11/19 12:47) Hives Sulfa (Sulfonamide Antibiotics) Allergy (Intermediate, Verified 06/11/19 12:47) UNKNOWN indomethacin Allergy (Unknown, Verified 06/11/19 12:47) Unknown reaction Bees Allergy (Intermediate, Uncoded 06/11/19 12:47) Hives Home Medications: multivitamin, loratadine Past Medical History - General Information source: Patient - Social History Smoking Status: Never Smoker Chew tobacco use (# tins/day): No Frequency of alcohol use: None Drug Abuse: None Family History: Reviewed & Not Pertinent, Other Patient has suicidal ideation: No Patient has homicidal ideation: No - Past Medical History Cardiac Medical History: Denies: Hx Coronary Artery Disease, Hx Heart Attack, Hx Hypertension Pulmonary Medical History: Reports: Hx Asthma Denies: Hx Bronchitis, Hx COPD, Hx Pneumonia Neurological Medical History: 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" Renal/ Medical History: Denies: Hx Peritoneal Dialysis GI Medical History: Reports: Hx Colonoscopy, Hx Endoscopy Musculoskeletal Medical History: Denies Hx Arthritis, Reports Hx Musculoskeletal Trauma Past Surgical History: Reports: Hx Section, Hx Orthopedic Surgery - Right ACL tear repair - Immunizations Hx Diphtheria, Pertussis, Tetanus Vaccination: Yes Review of Systems - Review of Systems Constitutional: denies: Chills, Fever Gastrointestinal: Abdominal pain, Nausea Neurological/Psychological: No symptoms reported Physical Exam - Vital signs Vitals: Temp Pulse Resp BP Pulse Ox 98.3 F 82 18 146/70 H 99 06/11/19 12:31 06/11/19 12:31 06/11/19 12:31 06/11/19 12:31 06/11/19 12:31 - Notes Notes: GENERAL_APPEARANCE: well_nourished, alert, cooperative, no_acute_distress, no_obvious_discomfort. VITALS: reviewed, see vital signs table. HEAD: no_swelling\\tenderness on the head. EYES: PERRL, EOMI, conjunctiva_clear. NOSE: no_nasal_discharge. MOUTH: (-)decreased moisture. THROAT: no_tonsilar_inflammation, no_airway_obstruction. no_lymphadenopathy NECK: supple, no_neck_tenderness, (-)thyromegaly. BACK: no_back_tenderness. CHEST_WALL: no_chest_tenderness. LUNGS: no_wheezing, no_rales, no_rhonchi, (-)accessory muscle use, good air exchange bilateral. HEART: normal_rate, normal_rhythm, normal_S1, normal_S2, (-)S3, (-)S4, no_murmur, no_rub. ABDOMEN: normal_BS, soft, upper quadrant and suprapubic_abd_tenderness, (- )guarding, (-)rebound, no_organomegaly, no_abd_masses. EXTREMITIES: s good pulses in all_extremities, no_swelling\\tenderness in the e xtremities, no_edema. SKIN: warm, dry, good_color, no_rash. MENTAL_STATUS: speech_clear, oriented_X_3, normal_affect, responds_appropriately to questions. Course - Re-evaluation Re-evalutation: 06/11/19 15:16 23-year-old female who presents with multiple abdominal complaints. Ultrasound showed no acute abnormalities of the right upper quadrant or the pelvis. Urine is clean. Patient denies any discharge or other abnormalities. States she is feeling better blood work is very reassuring I spoke with the patient at length she does not want a pelvic exam. We spoke again at length and she is comfortable going home. States she did have a history of a prior cyst but that this is no longer present. Nothing to suggest torsion. Patient is very comfortable resting on the bed. Abdomen is soft and supple without rebound or guarding. - Vital Signs Vital signs: Temp Pulse Resp BP Pulse Ox 98.3 F 82 18 146/70 H 99 06/11/19 12:31 06/11/19 12:31 06/11/19 12:31 06/11/19 12:31 06/11/19 12:31 - Laboratory Result Diagrams: 06/11/19 13:17 06/11/19 13:17 Laboratory results interpreted by me: 06/11/19 06/11/19 13:17 13:17 RDW 14.4 H Urine Ketones TRACE H - Diagnostic Test Radiology reviewed: Reports reviewed Radiology results interpreted by me: 06/11/19 15:01 Abdomen Ultrasound 06/11/19 12:52 IMPRESSION: Unremarkable right upper quadrant ultrasound Transvaginal US 06/11/19 12:52 IMPRESSION: Unremarkable pelvic ultrasound. Previously-seen 5.5 cm right ovarian cyst is no longer appreciated. Discharge - Discharge Clinical Impression: Abdominal pain Qualifiers: Abdominal location: generalized Qualified Code(s): R10.84 - Generalized abdominal pain Condition: Good Disposition: HOME, SELF-CARE Instructions: Abdominal Pain ([facility]), Antispasmodics ([facility]) Prescriptions: Dicyclomine HCl [Bentyl 20 mg Tablet] 20 mg PO QID #40 tablet Ondansetron [Zofran Odt 4 mg Tablet] 1 - 2 tab PO Q4H PRN #15 tab.rapdis PRN Reason: For Nausea/Vomiting Referrals: DRAKE MUHAMMAD MD [ACTIVE STAFF] - Follow up as needed
[2019-06-11 15:40] VITALS: BP 113/67
== END 2019-06-11 15:41 | disposition home or self-care (01) ==
LOC: ER 12:13
DX: R10.84 Generalized abdominal pain (principal); M54.9 Dorsalgia, unspecified; R11.10 Vomiting, unspecified; Z88.2 Allergy status to sulfonamides; Z91.013 Allergy to seafood
CPT/HCPCS: 99284; 36415; 83690; 84703; 85025; 80053; 81001; 76705; 76830; S0119

== ENCOUNTER 2019-08-12 19:15 | Emergency (ER) | payer OTHER ==
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
[2019-08-12] MEDS ORDERED: IBUPROFEN 800 MG TABLET PO ONE (21:38)
--- NOTE | 2019-08-12 22:31 | RADIOLOGY REPORT (SQ) ---
Right knee three view on 08/12/2019 at 9:48 PM CLINICAL INDICATION: Right knee pain COMPARISON: 10/20/2013 FINDINGS: Postsurgical changes from prior ACL repair are noted. There is mild joint space narrowing in all three compartments with small osteophyte formation consistent with mild changes of osteoarthritis. No joint effusion is noted. There are no fractures. Visualized joints are well aligned. IMPRESSION: Chronic findings as above with no acute abnormality.
[2019-08-12 23:30] VITALS: BP 131/86
== END 2019-08-12 23:29 | disposition home or self-care (01) ==
LOC: ER 19:15
DX: S86.911A Strain of unspecified muscle(s) and tendon(s) at lower leg level, right leg, initial encounter (principal); V01.90XA Pedestrian on foot injured in collision with pedal cycle, unspecified whether traffic or nontraffic accident, initial encounter; Z88.2 Allergy status to sulfonamides; Z91.013 Allergy to seafood
CPT/HCPCS: 99283

== ENCOUNTER 2019-08-13 18:38 | Emergency (ER) | payer OTHER ==
--- NOTE | 2019-08-13 19:19 | ER Document Report ---
ED Medical Screen (RME) - General Chief Complaint: Headache Stated Complaint: HEADACHE,SYNCOPAL EPISODE Time Seen by Provider: 08/13/19 19:13 Primary Care Provider: ADELA MINA DO [Primary Care Provider] - Follow up as needed Mode of Arrival: Wheelchair Information source: Patient Notes: 23-year-old female presented to ED for complaint of syncopal episode while at work. 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 She did have an x-ray due to an injury at work. She states this morning she woke up with her right foot and knee swollen took some ibuprofen and went to work she was lightheaded when she went to work now she has pain to the back of her head and the right side of her head and her eyes are hurting. She states her right knee and foot still hurt. I have greeted and performed a rapid initial assessment of this patient. A comprehensive ED assessment and evaluation of the patient, analysis of test results and completion of medical decision making process will be conducted by an additional ED providers. TRAVEL OUTSIDE OF THE [place] IN LAST 30 DAYS: No - Related Data Allergies/Adverse Reactions: Iodinated Contrast Media Allergy (Intermediate, Verified 08/13/19 19:13) Hives Shellfish * [Shellfish] Allergy (Intermediate, Verified 08/13/19 19:13) Hives Sulfa (Sulfonamide Antibiotics) Allergy (Intermediate, Verified 08/13/19 19:13) UNKNOWN indomethacin Allergy (Unknown, Verified 08/13/19 19:13) Unknown reaction Bees Allergy (Intermediate, Uncoded 08/13/19 19:13) Hives Past Medical History - Past Medical History Cardiac Medical History: Denies: Hx Coronary Artery Disease, Hx Heart Attack, Hx Hypertension Pulmonary Medical History: Reports: Hx Asthma Denies: Hx Bronchitis, Hx COPD, Hx Pneumonia Neurological Medical History: 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" Renal/ Medical History: Denies: Hx Peritoneal Dialysis GI Medical History: Reports: Hx Colonoscopy, Hx Endoscopy Musculoskeltal Medical History: Denies Hx Arthritis, Reports Hx Musculoskeletal Trauma Past Surgical History: Reports: Hx Section, Hx Orthopedic Surgery - Right ACL tear repair - Immunizations Hx Diphtheria, Pertussis, Tetanus Vaccination: Yes Physical Exam - Vital signs Vitals: Temp Pulse Resp BP Pulse Ox 98.5 F 73 16 131/78 H 100 08/13/19 19:00 08/13/19 19:00 08/13/19 19:00 08/13/19 19:00 08/13/19 19:00 Course - Vital Signs Vital signs: Temp Pulse Resp BP Pulse Ox 98.5 F 73 16 131/78 H 100 08/13/19 19:00 08/13/19 19:00 08/13/19 19:00 08/13/19 19:00 08/13/19 19:00 Doctor's Discharge - Discharge Referrals: ADELA MINA, [Primary Care Provider] - Follow up as needed
[2019-08-13 20:01] LABS: ABSOLUTE EOSINOPHILS # (AUTO) 0.4 10^3/uL (0.0-0.6); ABSOLUTE LYMPHOCYTES (AUTO) 2.5 10^3/uL (0.5-4.7); ABSOLUTE MONOCYTES (AUTO) 0.8 10^3/uL (0.1-1.4); ABSOLUTE NEUT (AUTO) 5.1 10^3/uL (1.7-8.2); BASOPHILS % (AUTO) 0.6 % (0-2); EOSINOPHILS % (AUTO) 4.5 % (0-6); HEMOGLOBIN 12.7 g/dL (12.0-15.5); LYMPHOCYTES % (AUTO) 28.5 % (13-45); MEAN CORPUSCULAR HEMOGLOBIN 27.9 pg (27.0-33.4); MEAN CORPUSCULAR HGB CONC 32.6 g/dL (32.0-36.0); MEAN CORPUSCULAR VOLUME 86 fl (80-97); PLATELET COUNT 216 10^3/uL (150-450); RED BLOOD COUNT 4.56 10^6/uL (3.72-5.28); RED CELL DISTRIBUTION WIDTH 14.1 % (11.5-14.0); SEGMENTED NEUTROPHILS % (AUTO) 57.4 % (42-78); TOTAL CELLS COUNTED % (AUTO) 100 %; WHITE BLOOD COUNT 8.9 10^3/uL (4.0-10.5)
[2019-08-13 20:18] LABS: ALBUMIN 4.4 g/dL (3.5-5.0); ALKALINE PHOSPHATASE 58 U/L (38-126); ANION GAP 9 (5-19); ASPARTATE AMINO TRANSFERASE 17 U/L (14-36); BILIRUBIN,DIRECT 0.2 mg/dL (0.0-0.4); BILIRUBIN,TOTAL 0.5 mg/dL (0.2-1.3); BLOOD UREA NITROGEN 11 mg/dL (7-20); CALCIUM 9.6 mg/dL (8.4-10.2); CARBON DIOXIDE 31 mmol/L (22-30); CHLORIDE 100 mmol/L (98-107); GLUCOSE 93 mg/dL (75-110); POTASSIUM 3.9 mmol/L (3.6-5.0); TOTAL PROTEIN 7.6 g/dL (6.3-8.2)
[2019-08-13 20:35] LABS: APPEARANCE,URINE SLIGHTLY-CLOUDY; BILIRUBIN,URINE NEGATIVE (NEGATIVE); COLOR,URINE YELLOW; GLUCOSE, URINE NEGATIVE (NEGATIVE); KETONES,URINE NEGATIVE (NEGATIVE); PROTEIN,URINE NEGATIVE (NEGATIVE); URINE SPECIFIC GRAVITY 1.021; UROBILINOGEN,URINE NEGATIVE mg/dL (<2.0)
[2019-08-13] MEDS ORDERED: NORMAL SALINE 1000 ML 1,000 ML IV ONE (22:06)
[2019-08-13] MEDS ORDERED: METOCLOPRAMIDE HCL INJ/PF 10 MG/2 ML SDV IV ONE (22:53)
--- NOTE | 2019-08-13 23:23 | RADIOLOGY REPORT (SQ) ---
EXAM DESCRIPTION: Noncontrast CT head CLINICAL HISTORY: 23 years Female syncope, headache TECHNIQUE: Noncontrast CT head. All CT scans at this facility use dose modulation, iterative reconstruction, and/or weight based dosing when appropriate to reduce radiation dose to as low as reasonably achievable. COMPARISON: None available. FINDINGS: Rodgers matter, white matter, ventricles, and cisterns are within normal limits. No acute hemorrhage or mass effect. Visualized portions of paranasal sinuses demonstrate a small mucous retention cyst versus polyp within the right maxillary sinus. The mastoids are clear. Visualized portions of the calvarium are within normal limits. IMPRESSION: 1. No acute intracranial hemorrhage or mass effect. If there is persistent clinical concern for acute intracranial process, such as stroke, consider MRI brain as a more sensitive evaluation.
[2019-08-13] MEDS ORDERED: KETOROLAC TROMETHAMINE INJ/PF 30 MG/1 ML SDV IV ONE (23:28)
--- NOTE | 2019-08-13 23:54 | ER Document Report ---
ED General - General Chief Complaint: Passed Out Prior to Arrival Stated Complaint: HEADACHE,SYNCOPAL EPISODE Time Seen by Provider: 08/13/19 19:13 Primary Care Provider: ADELA MINA DO [Primary Care Provider] - Follow up tomorrow Mode of Arrival: Wheelchair Notes: 23-year-old female presents for syncope that occurred at 330 this afternoon. Patient was in the bathroom at work blowing her nose when a coworker heard a thump and patient woke up on the floor. Patient states she did feel little lightheaded and is having some pain to her head. Patient denies any chest pain, dyspnea, nausea/vomiting, abdominal pain. Patient denies this ever occurring previously. TRAVEL OUTSIDE OF THE [place] IN LAST 30 DAYS: No - Related Data Allergies/Adverse Reactions: Iodinated Contrast Media Allergy (Intermediate, Verified 08/13/19 19:13) Hives Shellfish * [Shellfish] Allergy (Intermediate, Verified 08/13/19 19:13) Hives Sulfa (Sulfonamide Antibiotics) Allergy (Intermediate, Verified 08/13/19 19:13) UNKNOWN indomethacin Allergy (Unknown, Verified 08/13/19 19:13) Unknown reaction Bees Allergy (Intermediate, Uncoded 08/13/19 19:13) Hives Past Medical History - General Information source: Patient - Social History Smoking Status: Never Smoker Family History: Reviewed & Not Pertinent, Other Patient has suicidal ideation: No Patient has homicidal ideation: No - Past Medical History Cardiac Medical History: Denies: Hx Coronary Artery Disease, Hx Heart Attack, Hx Hypertension Pulmonary Medical History: Reports: Hx Asthma Denies: Hx Bronchitis, Hx COPD, Hx Pneumonia Neurological Medical History: 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" Renal/ Medical History: Denies: Hx Peritoneal Dialysis GI Medical History: Reports: Hx Colonoscopy, Hx Endoscopy Musculoskeletal Medical History: Denies Hx Arthritis, Reports Hx Musculoskeletal Trauma Past Surgical History: Reports: Hx Section, Hx Orthopedic Surgery - Right ACL tear repair - Immunizations Hx Diphtheria, Pertussis, Tetanus Vaccination: Yes Review of Systems - Review of Systems Notes: Constitutional: Negative for fever. HENT: Negative for sore throat. Eyes: Negative for visual changes. Cardiovascular: Negative for chest pain. Respiratory: Negative for shortness of breath. Gastrointestinal: Negative for abdominal pain, vomiting or diarrhea. Genitourinary: Negative for dysuria. Musculoskeletal: Negative for back pain. Skin: Negative for rash. Neurological: Positive for syncope and headache. Negative for weakness or numbness. 10 point ROS negative except as marked above and in HPI. Physical Exam - Vital signs Vitals: Temp Pulse Resp BP Pulse Ox 98.5 F 73 16 131/78 H 100 08/13/19 19:00 08/13/19 19:00 08/13/19 19:00 08/13/19 19:00 08/13/19 19:00 - Notes Notes: GENERAL: Well-appearing, well-nourished and in no acute distress. HEAD: Atraumatic, normocephalic. EYES: Pupils equal round and reactive to light, extraocular movements intact, sclera anicteric, conjunctiva are normal. NECK: Normal range of motion, supple without lymphadenopathy or JVD. LUNGS: Breath sounds clear to auscultation bilaterally and equal. No wheezes rales or rhonchi. HEART: Regular rate and rhythm without murmurs, rubs or gallops. EXTREMITIES: Normal range of motion, no pitting or edema. No clubbing or cyanosis. NEUROLOGICAL: Cranial nerves II through XII grossly intact. Normal speech, normal gait. PERRLA. EOM intact. Content Writer strength equal bilaterally. No facial droop. No tongue deviation. Upper strength equal bilaterally. Lower strength equal bilaterally. PSYCH: Normal mood, normal affect. SKIN: Warm, Dry, normal turgor, no rashes or lesions noted. Course - Re-evaluation Re-evalutation: 08/13/19 23-year-old female presents with syncope after blowing her nose. CT head was ordered due to headache/possible head injury. This was negative. Lab work was within normal limits. Per [place] syncope rule patient is low risk for serious outcome given no CHF history, no hematocrit less than 30%, no abnormal EKG, no shortness of breath history, and no SBP less than 90 at triage. Patient was given fluids and Toradol/Reglan for headache will reassess. 08/14/19 00:20 Syncopal episode most likely secondary to vasovagal response. Pt to be given strict return precautions and close follow up with PCP. Pt also given head injury precautions. Discussed all results with pt. Pt voices understanding and agrees with plan of care. - Vital Signs Vital signs: Temp Pulse Resp BP Pulse Ox 98.4 F 88 14 138/76 H 99 08/13/19 23:21 08/13/19 23:21 08/13/19 23:21 08/13/19 23:21 08/13/19 23:21 - Laboratory Result Diagrams: 08/13/19 19:30 08/13/19 19:30 Laboratory results interpreted by me: 08/13/19 08/13/19 08/13/19 19:30 19:30 19:52 RDW 14.1 H Carbon Dioxide 31 H Urine Ascorbic Acid 40 H Discharge - Discharge Clinical Impression: Syncope Qualifiers: Syncope type: vasovagal syncope Qualified Code(s): R55 - Syncope and collapse Head injury Qualifiers: Encounter type: initial encounter Qualified Code(s): S09.90XA - Unspecified injury of head, initial encounter Condition: Stable Disposition: HOME, SELF-CARE Instructions: Head Injury Precautions ([facility]), Reglan ([facility]), Syncopal Episode ([facility]), Toradol Injection ([facility]) Additional Instructions: Your head CT was normal. Please follow up with your primary care doctor in 1-2 days. Return immediately to ER if you start having any worsening symptoms, including passing out again, shortness of breath, chest pain, fever, confusion, weakness, or any other symptoms that are concerning to you. Forms: Return to Work Referrals: ADELA MINA DO [Primary Care Provider] - Follow up tomorrow
[2019-08-14 00:27] VITALS: BP 138/76
--- NOTE | 2019-08-14 14:24 | EKG REPORT ---
SEVERITY:- NORMAL ECG - SINUS RHYTHM : Confirmed by: Huang Franco 14-Aug-2019 14:22:02
== END 2019-08-14 00:38 | disposition home or self-care (01) ==
LOC: ER 18:38
DX: R55 Syncope and collapse (principal); S09.90XA Unspecified injury of head, initial encounter; R51 Headache; W19.XXXA Unspecified fall, initial encounter; Z88.2 Allergy status to sulfonamides; Z88.8 Allergy status to other drugs, medicaments and biological substances; J45.909 Unspecified asthma, uncomplicated; E11.9 Type 2 diabetes mellitus without complications
CPT/HCPCS: 93005; 36415; 84703; 85025; 80053; 81001; 84484; 70450; 93010; J1885; J2765; J7030; 96361; 96374; 96375; 99284

== ENCOUNTER 2019-08-18 12:19 | Emergency (ER) | payer OTHER ==
[2019-08-18] MEDS ORDERED: NORMAL SALINE 1000 ML 1,000 ML IV ONE (13:30)
[2019-08-18] MEDS ORDERED: METOCLOPRAMIDE HCL INJ/PF 10 MG/2 ML SDV IV ONE (13:30)
--- NOTE | 2019-08-18 13:32 | ER Document Report ---
ED Medical Screen (RME) - General Chief Complaint: Vomiting Stated Complaint: VOMITING,HEADACHE Time Seen by Provider: 08/18/19 13:23 Primary Care Provider: ADELA MINA DO [Primary Care Provider] - Follow up as needed Notes: Patient is a 23-year-old female who presents to the emergency department with a chief complaint of a headache and vomiting. She was seen here in the emergency department on August 13 and prior to coming in, she was blowing her nose and had a syncopal episode. She has had a headache since then and she has been taking Excedrin Migraine and Tylenol to help with her symptoms, but has not had any relief of her symptoms. Patient is also taking Zofran for nausea, but she continues to vomit. She ended up vomiting 3 times today. Exam: Cough, nontender abdomen. PERRLA. Slight weakness noted. I have greeted and performed a rapid initial assessment of this patient. A comprehensive ED assessment and evaluation of the patient, analysis of test results and completion of medical decision making process will be conducted by an additional ED providers. TRAVEL OUTSIDE OF THE [place] IN LAST 30 DAYS: No - Related Data Allergies/Adverse Reactions: Iodinated Contrast Media Allergy (Intermediate, Verified 08/18/19 13:03) Hives Shellfish * [Shellfish] Allergy (Intermediate, Verified 08/18/19 13:03) Hives Sulfa (Sulfonamide Antibiotics) Allergy (Intermediate, Verified 08/18/19 13:03) UNKNOWN indomethacin Allergy (Unknown, Verified 08/18/19 13:03) Unknown reaction Bees Allergy (Intermediate, Uncoded 08/13/19 19:13) Hives Past Medical History - Social History Chew tobacco use (# tins/day): No Frequency of alcohol use: None Drug Abuse: None - Past Medical History Cardiac Medical History: Denies: Hx Coronary Artery Disease, Hx Heart Attack, Hx Hypertension Pulmonary Medical History: Reports: Hx Asthma Denies: Hx Bronchitis, Hx COPD, Hx Pneumonia Neurological Medical History: 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" Renal/ Medical History: Denies: Hx Peritoneal Dialysis GI Medical History: Reports: Hx Colonoscopy, Hx Endoscopy Musculoskeltal Medical History: Denies Hx Arthritis, Reports Hx Musculoskeletal Trauma Past Surgical History: Reports: Hx Section, Hx Orthopedic Surgery - Right ACL tear repair - Immunizations Hx Diphtheria, Pertussis, Tetanus Vaccination: Yes Physical Exam - Vital signs Vitals: Temp Pulse Resp BP Pulse Ox 98.4 F 72 16 129/78 H 98 08/18/19 12:23 08/18/19 12:23 08/18/19 12:23 08/18/19 12:23 08/18/19 12:23 Course - Vital Signs Vital signs: Temp Pulse Resp BP Pulse Ox 98.4 F 72 16 129/78 H 98 08/18/19 12:23 08/18/19 12:23 08/18/19 12:23 08/18/19 12:23 08/18/19 12:23 Doctor's Discharge - Discharge Referrals: ADELA MINA DO [Primary Care Provider] - Follow up as needed
[2019-08-18] MEDS ORDERED: BUTALB/ACETAMINOPHEN/CAFFEINE 1 TAB EACH PO ONE (14:09)
--- NOTE | 2019-08-18 14:11 | ER Document Report ---
ED General - General Chief Complaint: Nausea/Vomiting Stated Complaint: VOMITING,HEADACHE Time Seen by Provider: 08/18/19 13:23 Primary Care Provider: ADELA MINA DO [NO LOCAL MD] - Follow up as needed Mode of Arrival: Ambulatory Information source: Patient TRAVEL OUTSIDE OF THE [place] IN LAST 30 DAYS: No - HPI Onset: Other - 3 days ago after a fall Onset/Duration: Gradual Quality of pain: Pressure Severity: Moderate Pain Level: 2 Associated symptoms: Nausea, Other - photophobia, phonophobia Exacerbated by: Other - light, loud noises Relieved by: Other - sitting in a dark room, tylenol and motrin Similar symptoms previously: No Recently seen / treated by doctor: Yes - seen in the ER on 08/13/19 for syncope and hitting head Notes: 23 year old female with no significant PMH (she has asthma and DM) here for a persistent headache since falling and hitting her head 3 days ago. The patient was seen in the ER 3 days ago when she apparently had a vasovagal event when blowing her nose. The patient had a head CT 3 days ago here after she hit her head and it showed no acute process then. The patient says the headache is in the back of her head where her head hit the ground. The patient is having some nausea, photophobia, and phonophpbia with her headache. The patient denies fevers, chills, sweats, neck stiffness, vision changes. - Related Data Allergies/Adverse Reactions: Iodinated Contrast Media Allergy (Intermediate, Verified 08/18/19 13:03) Hives Shellfish * [Shellfish] Allergy (Intermediate, Verified 08/18/19 13:03) Hives Sulfa (Sulfonamide Antibiotics) Allergy (Intermediate, Verified 08/18/19 13:03) UNKNOWN indomethacin Allergy (Unknown, Verified 08/18/19 13:03) Unknown reaction Bees Allergy (Intermediate, Uncoded 08/13/19 19:13) Hives Past Medical History - General Information source: Patient - Social History Smoking Status: Former Smoker Chew tobacco use (# tins/day): No Frequency of alcohol use: None Drug Abuse: None Lives with: Family Family History: Reviewed & Not Pertinent, Other Patient has suicidal ideation: No Patient has homicidal ideation: No - Past Medical History Cardiac Medical History: Denies: Hx Coronary Artery Disease, Hx Heart Attack, Hx Hypertension Pulmonary Medical History: Reports: Hx Asthma Denies: Hx Bronchitis, Hx COPD, Hx Pneumonia Neurological Medical History: 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" Renal/ Medical History: Denies: Hx Peritoneal Dialysis GI Medical History: Reports: Hx Colonoscopy, Hx Endoscopy Musculoskeletal Medical History: Denies Hx Arthritis, Reports Hx Musculoskeletal Trauma Past Surgical History: Reports: Hx Section, Hx Orthopedic Surgery - Ri ght ACL tear repair - Immunizations Hx Diphtheria, Pertussis, Tetanus Vaccination: Yes Review of Systems - Review of Systems Constitutional: No symptoms reported EENT: No symptoms reported Cardiovascular: No symptoms reported Respiratory: No symptoms reported Gastrointestinal: Nausea Genitourinary: No symptoms reported Female Genitourinary: No symptoms reported Musculoskeletal: No symptoms reported Skin: No symptoms reported Hematologic/Lymphatic: No symptoms reported Neurological/Psychological: Headaches, Other - photophobia, phonophobia -: Yes All other systems reviewed and negative Physical Exam - Vital signs Vitals: Temp Pulse Resp BP Pulse Ox 98.4 F 72 16 129/78 H 98 08/18/19 12:23 08/18/19 12:23 08/18/19 12:23 08/18/19 12:23 08/18/19 12:23 - Notes Notes: GENERAL: Well-appearing, well-nourished and in no acute distress. Patient sitting in a dark room. HEAD: Atraumatic, normocephalic. EYES: Pupils equal round and reactive to light, extraocular movements intact, sclera anicteric, conjunctiva are normal. ENT: TMs normal, nares patent, oropharynx clear without exudates. Moist mucous membranes. NECK: Normal range of motion, supple without lymphadenopathy or JVD. LUNGS: Breath sounds clear to auscultation bilaterally and equal. No wheezes rales or rhonchi. HEART: Regular rate and rhythm without murmurs, rubs or gallops. ABDOMEN: Soft, nontender, normoactive bowel sounds. No guarding, no rebound. No masses appreciated. EXTREMITIES: Normal range of motion, no pitting or edema. No clubbing or cyanosis. NEUROLOGICAL: Cranial nerves II through XII grossly intact. Normal speech, normal gait. PSYCH: Normal mood, normal affect. SKIN: Warm, Dry, normal turgor, no rashes or lesions noted. Course - Re-evaluation Re-evalutation: 08/18/19 14:16 The patient is here for a headache since felling and hitting her head on the ground 3 days ago. She was seen in this ER when she had the fall/syncope and she had a head CT then showing no acute process. Patient has tried tylenol and motrin without much relief of her headache and nausea. Patient was given fluids and Reglan before I saw the patient and her nausea was better but her headache persisted. Patient then treated with Fioricet. Will DC on Fioricet and Reglan. - Vital Signs Vital signs: Temp Pulse Resp BP Pulse Ox 98.4 F 72 16 129/78 H 98 08/18/19 12:23 08/18/19 12:23 08/18/19 12:23 08/18/19 12:23 08/18/19 12:23 - Laboratory Result Diagrams: 08/18/19 13:51 08/18/19 13:51 Discharge - Discharge Clinical Impression: Nausea Headache Qualifiers: Headache type: unspecified Headache chronicity pattern: acute headache Intractability: intractable Qualified Code(s): R51 - Headache Condition: Stable Disposition: HOME, SELF-CARE Instructions: Headache ([facility]), Nausea or Vomiting, Nonspecific ([facility]) Additional Instructions: Use Fioricet for headaches. Use Reglan for nausea. Follow up with your primary care doctor if symptoms persist. Prescriptions: Butalb/Acetaminophen/Caffeine [Fioricet (50-325-40 mg) Tablet] 1 tab PO Q8HP PRN #15 tab PRN Reason: Butalb/Acetaminophen/Caffeine [Fioricet (50-325-40 mg) Tablet] 1 tab PO Q8HP PRN #15 tab PRN Reason: Metoclopramide HCl [Reglan 10 mg Tablet] 10 mg PO Q12H PRN #15 tablet PRN Reason: Referrals: ADELA MINA, [NO LOCAL MD] - Follow up as needed
[2019-08-18 14:26] LABS: ABSOLUTE EOSINOPHILS # (AUTO) 0.1 10^3/uL (0.0-0.6); ABSOLUTE LYMPHOCYTES (AUTO) 2.9 10^3/uL (0.5-4.7); ABSOLUTE MONOCYTES (AUTO) 0.7 10^3/uL (0.1-1.4); ABSOLUTE NEUT (AUTO) 4.5 10^3/uL (1.7-8.2); BASOPHILS % (AUTO) 0.5 % (0-2); EOSINOPHILS % (AUTO) 1.6 % (0-6); HEMOGLOBIN 12.8 g/dL (12.0-15.5); LYMPHOCYTES % (AUTO) 34.7 % (13-45); MEAN CORPUSCULAR HGB CONC 33.7 g/dL (32.0-36.0); MEAN CORPUSCULAR VOLUME 86 fl (80-97); MONOCYTES % (AUTO) 8.1 % (3-13); PLATELET COUNT 228 10^3/uL (150-450); RED BLOOD COUNT 4.42 10^6/uL (3.72-5.28); RED CELL DISTRIBUTION WIDTH 14.1 % (11.5-14.0); SEGMENTED NEUTROPHILS % (AUTO) 55.1 % (42-78); TOTAL CELLS COUNTED % (AUTO) 100 %; WHITE BLOOD COUNT 8.3 10^3/uL (4.0-10.5)
[2019-08-18 14:33] VITALS: BP 111/59
[2019-08-18 14:37] LABS: ALBUMIN 4.5 g/dL (3.5-5.0); ALKALINE PHOSPHATASE 55 U/L (38-126); ANION GAP 7 (5-19); ASPARTATE AMINO TRANSFERASE 15 U/L (14-36); BILIRUBIN,TOTAL 0.5 mg/dL (0.2-1.3); BLOOD UREA NITROGEN 12 mg/dL (7-20); CALCIUM 9.8 mg/dL (8.4-10.2); CARBON DIOXIDE 31 mmol/L (22-30); CHLORIDE 101 mmol/L (98-107); GLUCOSE 95 mg/dL (75-110); POTASSIUM 4.2 mmol/L (3.6-5.0); TOTAL PROTEIN 7.5 g/dL (6.3-8.2)
== END 2019-08-18 15:00 | disposition home or self-care (01) ==
LOC: ER 12:19
DX: R11.2 Nausea with vomiting, unspecified (principal); R51 Headache; H53.149 Visual discomfort, unspecified; W19.XXXD Unspecified fall, subsequent encounter; Z88.2 Allergy status to sulfonamides; Z91.030 Bee allergy status; Z91.013 Allergy to seafood
CPT/HCPCS: 36415; 85025; 80053; J3490; J2765; J7030; 96361; 96374; 99284

== ENCOUNTER 2020-02-22 19:47 | Emergency (ER) | payer OTHER ==
[2020-02-22] MEDS ORDERED: NORMAL SALINE 1000 ML 1,000 ML IV ONE (20:34)
[2020-02-22] MEDS ORDERED: IPRATROPIUM/ALBUTEROL 0.5-2.5 MG/3 ML AMPUL NEB ONE (20:34)
[2020-02-22] MEDS ORDERED: METHYLPREDNISOLONE INJ 125 MG/2 ML SDV IV ONE (20:34)
--- NOTE | 2020-02-22 20:36 | ER Document Report ---
ED Respiratory Problem - General Chief Complaint: Shortness Of Breath Stated Complaint: SHORTNESS OF BREATH,VOMITING Time Seen by Provider: 02/22/20 20:22 Primary Care Provider: PREMA MOULTON PA-C [Primary Care Provider] - Follow up in 3-5 days Notes: Patient is a 24-year-old female with a history of asthma that comes emergency department for chief complaint of sick symptoms since Monday (about 4 to 5 days ago). She states she feels feverish but has not had a recorded fever, she has had a sore throat, cough, and wheezing. She was seen by primary care 3 days ago and placed on prednisone and cough medication. She states that she has had pneumonia in the past and she feels like she is getting pneumonia. She was tested for COVID-19 by primary care but has not received her results yet. Patient denies smoking. She denies any obvious sick contacts but she does work in childcare. TRAVEL OUTSIDE OF THE [place] IN LAST 30 DAYS: No - Related Data Allergies/Adverse Reactions: Iodinated Contrast Media Allergy (Intermediate, Verified 08/18/19 13:03) Hives Shellfish * [Shellfish] Allergy (Intermediate, Verified 08/18/19 13:03) Hives Sulfa (Sulfonamide Antibiotics) Allergy (Intermediate, Verified 08/18/19 13:03) UNKNOWN indomethacin Allergy (Unknown, Verified 08/18/19 13:03) Unknown reaction Bees Allergy (Intermediate, Uncoded 08/13/19 19:13) Hives Past Medical History - General Information source: Patient - Social History Smoking Status: Never Smoker Frequency of alcohol use: None Drug Abuse: None Lives with: Family Family History: Reviewed & Not Pertinent, Other - Past Medical History Cardiac Medical History: Denies: Hx Coronary Artery Disease, Hx Heart Attack, Hx Hypertension Pulmonary Medical History: Reports: Hx Asthma Denies: Hx Bronchitis, Hx COPD, Hx Pneumonia Neurological Medical History: 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" Renal/ Medical History: Denies: Hx Peritoneal Dialysis GI Medical History: Reports: Hx Colonoscopy, Hx Endoscopy Musculoskeletal Medical History: Denies Hx Arthritis, Reports Hx Musculoskeletal Trauma Past Surgical History: Reports: Hx Section, Hx Orthopedic Surgery - Right ACL tear repair - Immunizations Hx Diphtheria, Pertussis, Tetanus Vaccination: Yes Review of Systems - Review of Systems Constitutional: See HPI EENT: No symptoms reported Cardiovascular: No symptoms reported Respiratory: See HPI Gastrointestinal: No symptoms reported Genitourinary: No symptoms reported Female Genitourinary: No symptoms reported Musculoskeletal: No symptoms reported Skin: No symptoms reported Hematologic/Lymphatic: No symptoms reported Neurological/Psychological: No symptoms reported Physical Exam - Vital signs Vitals: Pulse Ox 100 02/22/20 19:58 - Notes Notes: GENERAL: Alert, interacts well. No acute distress. HEAD: Normocephalic, atraumatic. EYES: Pupils equal, round, and reactive to light. Extraocular movements intact. ENT: Oral mucosa moist, tongue midline. Oropharynx unremarkable. Airway patent. Nares patent, sinuses non-tender NECK: Full range of motion. Supple. Trachea midline. No lymphadenopathy. LUNGS: Frequent congested cough, expiratory wheezes and scattered rhonchi in all lung traylor. No respiratory distress, able to speak in full sentences HEART: Regular rate and rhythm. No murmur ABDOMEN: Soft, non-tender. Non-distended. EXTREMITIES: Moves all 4 extremities spontaneously. No edema, normal radial and dorsalis pedis pulses bilaterally. No cyanosis. BACK: no cervical, thoracic, lumbar midline tenderness. No saddle anesthesia, normal distal neurovascular exam. Moves all extremities in full range of motion. NEUROLOGICAL: Alert and oriented x3. Normal speech. Cranial nerves II through XII grossly intact. Strength 5/5 in all extremities. PSYCH: Normal affect, normal mood. SKIN: Warm, dry, normal turgor. No rashes or lesions noted. Course - Re-evaluation Re-evalutation: On initial evaluation patient with significant expiratory wheezes and congested cough. She is still able to speak in full sentences however, she still has good lung movement, her oxygen saturation is unremarkable. No tachycardia or fever. After treatments, steroids, patient reevaluated, wheezing complete resolved, patient states she feels much improved. Chest x-ray unremarkable, CBC shows mild leukocytosis with elevation of neutrophils, no bandemia. I discussed with patient. Patient is pending her test for the coronavirus already and should hear from us soon. Patient is still concerned she might have pneumonia. She is requesting treatment. I did agree to treat patient because of her worsening symptoms, productive cough, subjective fevers, mild leukocytosis. Discussed care and treatment, patient will complete her low-dose Medrol and she will have a dose of dexamethasone here in the setting of suspected COVID 19 infection with asthma. However patient states she feels comfortable going home, she has no symptoms on my reevaluation, she is smiling and well-appearing. I discussed strict return precautions, primary care follow-up, quarantine. Patient states appreciation and agreement. Stable and well-appearing at time of discharge. - Vital Signs Vital signs: Temp Pulse Resp BP Pulse Ox 98.3 F 17 128/81 H 97 02/22/20 22:47 02/22/20 22:47 02/22/20 22:47 02/22/20 22:47 - Laboratory Result Diagrams: 02/22/20 20:11 02/22/20 20:11 Laboratory results interpreted by me: 02/22/20 02/22/20 20:11 20:11 WBC 12.2 H Absolute Neuts (auto) 9.3 H Sodium 136.9 L Glucose 134 H Discharge - Discharge Clinical Impression: Cough, Chills, Body aches, Person under investigation for COVID-19 Asthma exacerbation Qualifiers: Asthma severity: unspecified severity Asthma persistence: unspecified Qualified Code(s): J45.901 - Unspecified asthma with (acute) exacerbation Condition: Stable Disposition: HOME, SELF-CARE Additional Instructions: Your chest x-ray does not show pneumonia, your evaluation is most consistent with a viral upper respiratory infection causing bronchitis and an asthma exacerbation. You have been treated with Decadron today, complete your steroids at home as well. Because of your evaluation and history we have decided to cover you for possible underlying pneumonia, complete the azithromycin as prescribed. Use your albuterol inhaler/nebulizer if needed. Drink plenty of fluids and rest. Because this could be COVID-19 please quarantine yourself while awaiting your test results from primary care and follow their instructions when they contact you. Return if you worsen including difficulty breathing, spiking fevers, or any other concerning worsening symptoms. Prescriptions: Azithromycin [Zithromax 250 mg Tablet] 250 mg PO ASDIR PRN #4 tablet PRN Reason: Forms: Return to Work Referrals: PREMA MOULTON PA-C [Primary Care Provider] - Follow up in 3-5 days
[2020-02-22] MEDS ORDERED: ONDANSETRON HCL INJ/PF 4 MG/2 ML SDV IV ONE (20:58)
[2020-02-22] MEDS ORDERED: HYDROCODONE/ACETAMINOPHEN 5-325 MG TABLET PO ONE (20:58)
[2020-02-22 21:19] LABS: ALBUMIN 4.5 g/dL (3.5-5.0); ALKALINE PHOSPHATASE 62 U/L (38-126); ANION GAP 10 (5-19); ASPARTATE AMINO TRANSFERASE 15 U/L (14-36); BILIRUBIN,TOTAL 0.3 mg/dL (0.2-1.3); BLOOD UREA NITROGEN 10 mg/dL (7-20); CALCIUM 9.5 mg/dL (8.4-10.2); CARBON DIOXIDE 22 mmol/L (22-30); CHLORIDE 105 mmol/L (98-107); GLUCOSE 134 mg/dL (75-110); POTASSIUM 4.2 mmol/L (3.6-5.0); TOTAL PROTEIN 7.7 g/dL (6.3-8.2)
--- NOTE | 2020-02-22 21:23 | RADIOLOGY REPORT (SQ) ---
EXAM DESCRIPTION: XR CHEST 1 VIEW COMPLETED DATE/TME: 02/22/2020 20:34 CLINICAL HISTORY: 24 years Female shortness of breath, productive cough COMPARISON: 07/08/2016 FINDINGS: The cardiomediastinal silhouette appears unremarkable. No consolidating infiltrates or pleural effusions. No pneumothorax. IMPRESSION: No acute abnormality is identified.
[2020-02-22 21:28] LABS: ABSOLUTE BASOPHILS # (AUTO) 0.1 10^3/uL (0.0-0.2); ABSOLUTE EOSINOPHILS # (AUTO) 0.1 10^3/uL (0.0-0.6); ABSOLUTE LYMPHOCYTES (AUTO) 2.2 10^3/uL (0.5-4.7); ABSOLUTE MONOCYTES (AUTO) 0.5 10^3/uL (0.1-1.4); ABSOLUTE NEUT (AUTO) 9.3 10^3/uL (1.7-8.2); BASOPHILS % (AUTO) 0.4 % (0-2); EOSINOPHILS % (AUTO) 0.5 % (0-6); HEMATOCRIT 40.4 % (36.0-47.0); HEMOGLOBIN 13.3 g/dL (12.0-15.5); MEAN CORPUSCULAR HEMOGLOBIN 27.5 pg (27.0-33.4); MEAN CORPUSCULAR HGB CONC 32.9 g/dL (32.0-36.0); MEAN CORPUSCULAR VOLUME 84 fl (80-97); MONOCYTES % (AUTO) 4.5 % (3-13); PLATELET COUNT 197 10^3/uL (150-450); RED BLOOD COUNT 4.84 10^6/uL (3.72-5.28); RED CELL DISTRIBUTION WIDTH 13.8 % (11.5-14.0); SEGMENTED NEUTROPHILS % (AUTO) 76.6 % (42-78); TOTAL CELLS COUNTED % (AUTO) 100 %; WHITE BLOOD COUNT 12.2 10^3/uL (4.0-10.5)
[2020-02-22] MEDS ORDERED: DEXAMETHASONE SOD PHOS INJ 10 MG/1 ML VIAL IV ONE (22:17)
[2020-02-22] MEDS ORDERED: AZITHROMYCIN 250 MG TABLET PO ONE (22:18)
[2020-02-22] MEDS ORDERED: DEXAMETHASONE SOD PHOSPHATE INJ 4 MG/1 ML VIAL ONE (22:32)
[2020-02-22 22:51] VITALS: BP 128/81
== END 2020-02-23 00:58 | disposition home or self-care (01) ==
LOC: ER 19:47
DX: J45.901 Unspecified asthma with (acute) exacerbation (principal); R05 Cough; R68.83 Chills (without fever); J02.9 Acute pharyngitis, unspecified; D72.828 Other elevated white blood cell count; Z87.01 Personal history of pneumonia (recurrent); Z91.041 Radiographic dye allergy status; Z91.013 Allergy to seafood; Z88.2 Allergy status to sulfonamides; Z91.030 Bee allergy status; Z88.8 Allergy status to other drugs, medicaments and biological substances; Z20.828 Contact with and (suspected) exposure to other viral communicable diseases
CPT/HCPCS: 94640; 99283; 96361; 96374; 96375; 36415; 87070; 87880; 84703; 85025; 80053; 71045; J2930; J2405; J7030; J1100

== ENCOUNTER 2020-07-23 09:58 | Emergency (ER) | payer OTHER ==
[2020-07-23] MEDS ORDERED: NORMAL SALINE 1000 ML 1,000 ML IV ONE (11:37)
--- NOTE | 2020-07-23 11:47 | ER Document Report ---
ED GI/ - General Chief Complaint: Abdominal Pain Stated Complaint: STOMACH PAIN Time Seen by Provider: 07/23/20 11:22 Primary Care Provider: PREMA MOULTON PA-C [Primary Care Provider] - Follow up as needed Notes: CHIEF COMPLAINT: Right upper quadrant pain HPI: 24-year-old female presenting for right upper quadrant pain intermittent over the last 2 weeks constant since last night. Has had nausea with one episod e of vomiting with it. Reports family history of gallbladder disease. Has not had a fever. ROS: See HPI - all other systems were reviewed and are otherwise negative Constitutional: no fever Eyes: no drainage, no blurred vision ENT: no runny nose, no sore throat Cardiovascular: no chest pain Resp: no SOB, no cough GI: + vomiting, no diarrhea, + abdominal pain : no dysuria Integumentary: no rash Allergy: no hives Musculoskeletal: no extremity pain or swelling Neurological: no numbness/tingling, no weakness MEDICATIONS: I agree with the patient medications as charted by the RN. ALLERGIES: I agree with the allergies as charted by the RN. PAST MEDICAL HISTORY/PAST SURGICAL HISTORY: Reviewed and agree as charted by RN. SOCIAL HISTORY: Reviewed and agree as charted by RN. FAMILY HISTORY: No significant familial comorbid conditions directly related to patient complaint EXAM: Reviewed vital signs as charted by RN. CONSTITUTIONAL: Alert and oriented and responds appropriately to questions. Well-appearing; well-nourished HEAD: Normocephalic; atraumatic EYES: Conjunctivae clear, sclerae non-icteric ENT: normal nose; no rhinorrhea; moist mucous membranes; pharynx without lesions noted, no uvula edema or deviation, no tonsillar hypertrophy, phonation normal NECK: Supple without meningismus CARD: RRR; no murmurs, no clicks, no rubs, no gallops; symmetric distal pulses RESP: Normal chest excursion without splinting or tachypnea; breath sounds clear and equal bilaterally; no wheezes, no rhonchi, no rales, pulse oximetry 98% on room air not hypoxic ABD/GI: Obese, normal bowel sounds; non-distended; soft, mild tenderness in the right upper quadrant on palpation, no rebound, no guarding; no palpable organomegaly or masses. BACK: The back appears normal and is non-tender to palpation, there is no CVA tenderness EXT: Normal ROM in all joints; non-tender to palpation; no cyanosis, no effusions, no edema SKIN: Normal color for age and race; warm; dry; good turgor; no acute lesions noted NEURO: Moves all extremities equally; Motor and sensory function intact PSYCH: The patient's mood and manner are appropriate. Grooming and personal hygiene are appropriate. MDM: 24-year-old female mild right upper quadrant pain intermittent over 2 weeks worse since last night and fairly constant. Family history of gallbladder disorders. Will obtain screening labs, right upper quadrant ultrasound to evaluate for cholelithiasis The patient was evaluated during the global COVID-19 pandemic and that diagnosis was suspected/considered upon their initial presentation. Their evaluation, treatment and testing was consistent with current guidelines for patients who present with complaints or symptoms that may be related to COVID-19 TRAVEL OUTSIDE OF THE [place] IN LAST 30 DAYS: No - Related Data Allergies/Adverse Reactions: Iodinated Contrast Media Allergy (Intermediate, Verified 08/18/19 13:03) Hives Shellfish * [Shellfish] Allergy (Intermediate, Verified 08/18/19 13:03) Hives Sulfa (Sulfonamide Antibiotics) Allergy (Intermediate, Verified 08/18/19 13:03) UNKNOWN indomethacin Allergy (Unknown, Verified 08/18/19 13:03) Unknown reaction Bees Allergy (Intermediate, Uncoded 08/13/19 19:13) Hives Home Medications: topiramate, rizatriptan, fioricet Past Medical History - Social History Smoking Status: Never Smoker Chew tobacco use (# tins/day): No Frequency of alcohol use: None Drug Abuse: None Family History: Reviewed & Not Pertinent, Other - Past Medical History Cardiac Medical History: Denies: Hx Coronary Artery Disease, Hx Heart Attack, Hx Hypertension Pulmonary Medical History: Reports: Hx Asthma Denies: Hx Bronchitis, Hx COPD, Hx Pneumonia Neurological Medical History: Reports: Hx Migraine. 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" Renal/ Medical History: Denies: Hx Peritoneal Dialysis GI Medical History: Reports: Hx Colonoscopy, Hx Endoscopy Musculoskeletal Medical History: Denies Hx Arthritis, Reports Hx Musculoskeletal Trauma Past Surgical History: Reports: Hx Section, Hx Orthopedic Surgery - Right ACL tear repair - Immunizations Hx Diphtheria, Pertussis, Tetanus Vaccination: Yes Physical Exam - Vital signs Vitals: Temp Pulse Resp BP Pulse Ox 99.5 F 109 H 16 134/90 H 99 07/23/20 10:10 07/23/20 10:10 07/23/20 10:10 07/23/20 10:10 07/23/20 10:10 Course - Re-evaluation Re-evalutation: 07/23/20 12:59 Ultrasound does not show evidence of abnormalities in the right upper quadrant where the patient is having her discomfort. Patient is requesting pain medication. We will proceed with CT imaging to further evaluate abdominal complaint. She lists iodine as a allergy. States that it does give her hives but she has done all right with IV contrast previously as long as she is premedicated 07/23/20 16:00 Patient has had no issues following contrast administration. She is noted to have an otherwise normal CT with the exception of a 4 cm right ovarian cyst likely causing her pain and discomfort. I spoke with her at length about this she has a history of ovarian cysts. She does not appear significantly uncomfortable at this time. Have lower suspicion for torsion. She does have an SPRAY TECHNICIAN for follow-up. She will call them tomorrow to schedule recheck in the office. She was given strict return precautions for recurrent or worsening or uncontrolled pain at home - Vital Signs Vital signs: Temp Pulse Resp BP Pulse Ox 99.5 F 109 H 16 134/90 H 99 07/23/20 10:10 07/23/20 10:10 07/23/20 10:10 07/23/20 10:10 07/23/20 10:10 - Laboratory Results Result Diagrams: 07/23/20 13:30 07/23/20 13:30 Laboratory Results Interpreted: 07/23/20 07/23/20 13:30 13:30 WBC 12.6 H Hgb 11.7 L Hct 35.9 L MCH 26.9 L Absolute Neuts (auto) 8.9 H Chloride 109 H Creatinine 0.48 L Glucose 70 L Calcium 7.9 L Critical Laboratory Results Reviewed: No Critical Results - Radiology Results Critical Radiology Results Reviewed: No Critical Results Discharge - Discharge Clinical Impression: Abdominal pain, right lateral Condition: Stable Disposition: HOME, SELF-CARE Additional Instructions: Take Percocet for pain. Do not drive if taking narcotics for pain. Follow-up with your SPRAY TECHNICIAN tomorrow regarding the right ovarian cyst that was noted on your CT imaging today it was approximately 4 cm. There were no other significant abnormalities noted. Return to the emergency department for onset o f fever or worsening or unrelenting pain or vomiting Prescriptions: Oxycodone HCl/Acetaminophen [Percocet 5-325 mg Tablet] 1 tab PO Q4H PRN #15 tab PRN Reason: Referrals: PREMA MOULTON PA-C [Primary Care Provider] - Follow up as needed
--- NOTE | 2020-07-23 12:43 | RADIOLOGY REPORT (SQ) ---
EXAM DESCRIPTION: U/S ABDOMEN LIMITED W/O DOP IMAGES COMPLETED DATE/TIME: 07/23/2020 11:25 am REASON FOR STUDY: RUQ pain COMPARISON: None. TECHNIQUE: Dynamic and static grayscale images acquired of the abdomen and recorded on PACS. Additio nal selected color Doppler and spectral images recorded. LIMITATIONS: None. FINDINGS: PANCREAS: No masses. Visualized pancreatic duct normal caliber. LIVER: No masses. Echotexture normal. LIVER VASCULATURE: Normal directional flow of the main portal vein and hepatic veins. GALLBLADDER: No stones. Normal wall thickness. No pericholecystic fluid. ULTRASOUND-DETECTED TODD'S SIGN: Negative. INTRAHEPATIC DUCTS AND COMMON DUCT: CBD and intrahepatic ducts normal caliber. No filling defects. INFERIOR VENA CAVA: Normal flow. AORTA: No aneurysm. RIGHT KIDNEY: Normal size. Normal echogenicity. No solid or suspicious masses. No hydronephrosis. No calcifications. PERITONEAL AND RIGHT PLEURAL SPACE: No ascites or effusions. OTHER: No other significant findings. IMPRESSION: No sonographic abnormality of the right upper quadrant abdomen. TECHNICAL DOCUMENTATION: JOB ID: [id number] [employer]- All Rights Reserved Reading location - IP/workstation name: [email or web address]
[2020-07-23] MEDS ORDERED: METHYLPREDNISOLONE INJ 125 MG/2 ML SDV IV ONE (13:02)
[2020-07-23] MEDS ORDERED: FAMOTIDINE INJ/PF 20 MG/2 ML SDV IV ONE (13:02)
[2020-07-23] MEDS ORDERED: DIPHENHYDRAMINE HCL 50 MG/ML VIAL IV ONE (13:02)
[2020-07-23] MEDS ORDERED: MORPHINE SULFATE 10 MG/ML INJ IV ONE (13:03)
[2020-07-23 13:45] LABS: ABSOLUTE BASOPHILS # (AUTO) 0.1 10^3/uL (0.0-0.2); ABSOLUTE EOSINOPHILS # (AUTO) 0.2 10^3/uL (0.0-0.6); ABSOLUTE LYMPHOCYTES (AUTO) 2.7 10^3/uL (0.5-4.7); ABSOLUTE MONOCYTES (AUTO) 0.8 10^3/uL (0.1-1.4); ABSOLUTE NEUT (AUTO) 8.9 10^3/uL (1.7-8.2); BASOPHILS % (AUTO) 0.4 % (0-2); EOSINOPHILS % (AUTO) 1.6 % (0-6); HEMATOCRIT 35.9 % (36.0-47.0); HEMOGLOBIN 11.7 g/dL (12.0-15.5); LYMPHOCYTES % (AUTO) 21.7 % (13-45); MEAN CORPUSCULAR HEMOGLOBIN 26.9 pg (27.0-33.4); MEAN CORPUSCULAR HGB CONC 32.5 g/dL (32.0-36.0); MEAN CORPUSCULAR VOLUME 83 fl (80-97); PLATELET COUNT 195 10^3/uL (150-450); RED BLOOD COUNT 4.34 10^6/uL (3.72-5.28); SEGMENTED NEUTROPHILS % (AUTO) 70.3 % (42-78); TOTAL CELLS COUNTED % (AUTO) 100 %; WHITE BLOOD COUNT 12.6 10^3/uL (4.0-10.5)
[2020-07-23 14:11] LABS: ALBUMIN 3.5 g/dL (3.5-5.0); ALKALINE PHOSPHATASE 45 U/L (38-126); ANION GAP 6 (5-19); ASPARTATE AMINO TRANSFERASE 19 U/L (14-36); BILIRUBIN,DIRECT 0.3 mg/dL (0.0-0.4); BILIRUBIN,TOTAL 0.6 mg/dL (0.2-1.3); BLOOD UREA NITROGEN 11 mg/dL (7-20); CALCIUM 7.9 mg/dL (8.4-10.2); CARBON DIOXIDE 23 mmol/L (22-30); CHLORIDE 109 mmol/L (98-107); GLUCOSE 70 mg/dL (75-110); POTASSIUM 3.8 mmol/L (3.6-5.0); TOTAL PROTEIN 6.4 g/dL (6.3-8.2)
[2020-07-23 14:12] LABS: APPEARANCE,URINE SLIGHTLY-CLOUDY; BILIRUBIN,URINE NEGATIVE (NEGATIVE); COLOR,URINE YELLOW; GLUCOSE, URINE NEGATIVE (NEGATIVE); KETONES,URINE NEGATIVE (NEGATIVE); LEUKOCYTE ESTERASE,URINE NEGATIVE (NEGATIVE); NITRITE,URINE NEGATIVE (NEGATIVE); PROTEIN,URINE NEGATIVE (NEGATIVE); UROBILINOGEN,URINE NEGATIVE mg/dL (<2.0)
--- NOTE | 2020-07-23 15:27 | RADIOLOGY REPORT (SQ) ---
EXAM DESCRIPTION: CT ABD/PELVIS WITH IV ONLY IMAGES COMPLETED DATE/TIME: 07/23/2020 3:15 pm REASON FOR STUDY: right abd pain COMPARISON: None. TECHNIQUE: CT scan of the abdomen and pelvis performed using helical scanning technique with dynamic intravenous contrast injection. No oral contrast. Images reviewed with lung, soft tissue, and bone windows. Reconstructed coronal and sagittal MPR images reviewed. Delayed images for evaluation of the urinary system also acquired. All images stored on PACS. All CT scanners at this facility use dose modulation, iterative reconstruction, and/or weight based d osing when appropriate to reduce radiation dose to as low as reasonably achievable (ALARA). [facility]: Dose Right [facility]: CareDose [facility]: Dose Right [facility]: Teradose 4D [facility]: OpenSpirit CONTRAST TYPE AND DOSE: contrast/concentration: Isovue 350.00 mmol/ml; Total Contrast Delivered: 100 .0 ml; Total Saline Delivered: 53.0 ml RENAL FUNCTION: GFR > 60. RADIATION DOSE: CT Rad equipment meets quality standard of care and radiation dose reduction techniq ues were employed. CTDIvol: 16.9 - 19.7 mGy. DLP: 1887 mGy-cm.. LIMITATIONS: None. FINDINGS: LOWER CHEST: No significant findings. No nodules or infiltrates. LIVER: Normal size. No masses. No dilated ducts. SPLEEN: Normal size. No focal lesions. PANCREAS: No masses. No significant calcifications. No adjacent inflammation or peripancreatic fluid collections. Pancreatic duct not dilated. GALLBLADDER: No identified stones by CT criteria. No inflammatory changes to suggest cholecystitis. ADRENAL GLANDS: No significant masses or asymmetry. RIGHT KIDNEY AND URETER: No solid masses. No significant calcifications. No hydronephrosis or hyd roureter. LEFT KIDNEY AND URETER: No solid masses. No significant calcifications. No hydronephrosis or hydr oureter. AORTA AND VESSELS: No aneurysm. No dissection. Renal arteries, SMA, celiac without stenosis. RETROPERITONEUM: No retroperitoneal adenopathy, hemorrhage or masses. BOWEL AND PERITONEAL CAVITY: No masses or inflammatory changes. No free fluid or peritoneal masses. APPENDIX: Normal. PELVIS: 4 cm cyst right ovary. No free fluid. ABDOMINAL WALL: Small fat containing umbilical hernia. BONES: No significant or acute findings. OTHER: No other significant finding. IMPRESSION: 4 cm cyst right ovary. TECHNICAL DOCUMENTATION: JOB ID: [id number] Quality ID # [id number]: Final reports with documentation of one or more dose reduction techniques (e.g., Au tomated exposure control, adjustment of the mA and/or kV according to patient size, use of iterative reconstruction technique) 2010 [employer]- All Rights Reserved Reading location - IP/workstation name: [email or web address]
[2020-07-23] MEDS ORDERED: OXYCODONE-ACETAMINOPHEN 5-325 MG TABLET PO ONE (15:59)
[2020-07-23 16:31] VITALS: BP 116/73
== END 2020-07-23 16:31 | disposition home or self-care (01) ==
LOC: ER 09:58
DX: N83.201 Unspecified ovarian cyst, right side (principal); R10.11 Right upper quadrant pain; R11.2 Nausea with vomiting, unspecified; Z88.2 Allergy status to sulfonamides
CPT/HCPCS: 99285; 96361; 96374; 96375; 36415; 83690; 84703; 85025; 80053; 81001; 76705; 74177; J1200; J2930; J2270; J7030; S0028